=== PATIENT | female | born 1990 | race Caucasian/White ===

== ENCOUNTER 2018-03-03 21:26 | Emergency (ER) | payer OTHER, SELFPAY ==
[2018-03-03 23:32] LABS: Urine Blood NEGATIVE (NEG); Urine Glucose NEGATIVE (NEG); Urine Protein NEGATIVE (NEG); Urine Specific Gravity 1.025 (1.005-1.030)
--- NOTE | 2018-03-03 23:32 | ER ---
Nurse's Notes [facility] Name: Kandy Garces Age: 27 yrs Sex: Female : 1990 Arrival Date: 03/03/2018 Time: 21:48 Bed 19 Private MD: Diagnosis: Otitis media, unspecified, right ear Presentation: 03/03 21:48 Presenting complaint: Patient states: Flu like symptoms for 2 days. Patient is 10 week aj . Denies cramping or bleeding. Transition of care: patient was not received from another setting of care. Onset of symptoms was March 01, 2018. Care prior to arrival: None. 21:48 Method Of Arrival: Ambulatory aj 21:48 Acuity: RUMA 4 aj Triage Assessment: 21:49 General: Appears in no apparent distress. comfortable, Behavior is calm, cooperative, aj appropriate for age. Pain: Denies pain. EENT: Reports nasal congestion nasal discharge. Neuro: Level of Consciousness is awake, alert, obeys commands, Oriented to person, place, time, situation. Respiratory: Reports cough that is Airway is patent Respiratory effort is even, unlabored, Respiratory pattern is regular, symmetrical. Derm: Skin is intact, is healthy with good turgor, Skin is pink, warm \T\ dry. normal. 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 - Social history:: Smoking status: Patient/guardian denies using tobacco. Screenin/13 00:00 Abuse screen: Denies threats or abuse. Denies injuries from another. Nutritional bs1 screening: No deficits noted. Tuberculosis screening: No symptoms or risk factors identified. Fall Risk None identified. Assessment: 03/03 23:30 General: Appears in no apparent distress. uncomfortable, ill, Behavior is calm, bs1 cooperative, Reports chills for 2-3 days, fever for 2-3 days, feeling ill for 2-3 days. 23:30 Pain: Complains of pain in right ear and left ear Pain does not radiate. Neuro: Level bs1 of Consciousness is awake, alert, obeys commands, Oriented to person, place, time, situation, Appropriate for age Quad Stayer are equal bilaterally Moves all extremities. Cardiovascular: Denies chest pain, lightheadedness, palpitations, shortness of breath, Heart tones S1 S2 present Capillary refill < 3 seconds Patient's skin is warm and dry. Respiratory: Reports cough that is productive, Airway is patent Trachea midline Respiratory effort is even, unlabored, Respiratory pattern is regular, symmetrical, Breath sounds are clear bilaterally. GI: No deficits noted. No signs and/or symptoms were reported involving the gastrointestinal system. : No deficits noted. No signs and/or symptoms were reported regarding the genitourinary system. EENT: No deficits noted. No signs and/or symptoms were reported regarding the EENT system. Derm: Skin is intact, Skin is pink, warm \T\ dry. Musculoskeletal: Circulation, motion, and sensation intact. Capillary refill < 3 seconds, Range of motion: intact in all extremities. Vital Signs: 21:49 BP 125 / 67; Pulse 93; Resp 20; Temp 98.1; Pulse Ox 98% on R/A; Weight 87.09 kg; Height aj 5 ft. 2 in. (157.48 cm); Pain 0/10; 03/04 00:00 BP 139 / 61; Pulse 81; Resp 16; Temp 98.1(O); Pulse Ox 100% on R/A; bs1 03/03 21:49 Body Mass Index 35.12 (87.09 kg, 157.48 cm) ED Course: 03/03 21:48 Patient arrived in ED. aj 21:49 Triage completed. aj 21:49 Arm band placed on right wrist. Patient placed in waiting room, Patient notified of wait time. 23:02 Misa Schafer FNP-C [facility]. snw 23:02 Josue Kramer MD is Attending Physician. snw 23:24 Floridalma Sam RN is Primary Nurse. bs1 23:30 Patient has correct armband on for positive identification. Bed in low position. Call bs1 light in reach. Side rails up X 1. Pulse ox on. NIBP on. 03/04 00:09 No provider procedures requiring assistance completed. Patient did not have IV access bs1 during this emergency room visit. Administered Medications: 03/03 23:44 Drug: Rocephin (cefTRIAXone) 1 grams Route: IM; Site: right deltoid; bs1 03/04 00:10 Follow up: Response: No adverse reaction bs1 Outcome: 03/03 23:31 Discharge ordered by MD. gerard 03/04 00:09 Discharged to home ambulatory. bs1 Condition: stable Discharge instructions given to patient, Instructed on discharge instructions, follow up and referral plans. medication usage, Demonstrated understanding of instructions, follow-up care, medications, Prescriptions given X 1. 00:11 Patient left the ED. bs1 Signatures: Yamel Whitman, RN RN Misa Tompkins, DOV-C INSURANCE VERIFICATION CLERK-Floridalma Singh RN RN bs1 Corrections: (The following items were deleted from the chart) 00:08 03/03 23:30 General: Appears in no apparent distress. uncomfortable, ill, Behavior is bs1 bs1
--- NOTE | 2018-03-03 23:32 | EDPHYS ---
Physician Documentation [facility] Name: Kandy Garces Age: 27 yrs Sex: Female : 1990 Arrival Date: 03/03/2018 Time: 21:48 Bed 19 Private MD: ED Physician Josue Kramer HPI: 03/04 02:09 This 27 yrs old Female presents to ER via Ambulatory with complaints of Flu snw Symptoms. 02:09 Onset: The symptoms/episode began/occurred gradually, 3 day(s) ago, and became snw persistent. Associated signs and symptoms: Pertinent positives: congestion, sore throat. Modifying factors: The patient symptoms are alleviated by nothing. It is unknown whether or not the patient has had similar symptoms in the past. The patient has not recently seen a physician. + 10 weeks . 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 - Social history:: Smoking status: Patient/guardian denies using tobacco. ROS: 03/04 02:11 Eyes: Negative for injury, pain, redness, and discharge, Neck: Negative for injury, snw pain, and swelling, Cardiovascular: Negative for chest pain, palpitations, and edema, Respiratory: Negative for shortness of breath, cough, wheezing, and pleuritic chest pain, Abdomen/GI: Negative for abdominal pain, nausea, vomiting, diarrhea, and constipation, Back: Negative for injury and pain, : Negative for injury, bleeding, discharge, and swelling, MS/Extremity: Negative for injury and deformity, Skin: Negative for injury, rash, and discoloration, Neuro: Negative for headache, weakness, numbness, tingling, and seizure. Constitutional: Positive for fatigue, malaise, poor PO intake. ENT: Positive for nasal discharge, sore throat. Exam: 02:07 Constitutional: This is a well developed, well nourished patient who is awake, alert, snw and in no acute distress. Head/Face: Normocephalic, atraumatic. + head tremor Eyes: Pupils equal round and reactive to light, extra-ocular motions intact. Lids and lashes normal. Conjunctiva and sclera are non-icteric and not injected. Cornea within normal limits. Periorbital areas with no swelling, redness, or edema. ENT: Nares patent. No nasal discharge, no septal abnormalities noted. Tympanic membrane to right erythematous, left tm and external auditory canals are clear. Oropharynx with no redness, swelling, or masses, exudates, or evidence of obstruction, uvula midline. Mucous membranes moist. Neck: Trachea midline, no thyromegaly or masses palpated, and no cervical lymphadenopathy. Supple, full range of motion without nuchal rigidity, or vertebral point tenderness. No Meningismus. Chest/axilla: Normal chest wall appearance and motion. Nontender with no deformity. No lesions are appreciated. Cardiovascular: Regular rate and rhythm with a normal S1 and S2. No gallops, murmurs, or rubs. Normal PMI, no JVD. No pulse deficits. Respiratory: Lungs have equal breath sounds bilaterally, clear to auscultation and percussion. No rales, rhonchi or wheezes noted. No increased work of breathing, no retractions or nasal flaring. Abdomen/GI: Soft, non-tender, with normal bowel sounds. No distension or tympany. No guarding or rebound. No evidence of tenderness throughout. Back: No spinal tenderness. No costovertebral tenderness. Full range of motion. Skin: Warm, dry with normal turgor. Normal color with no rashes, no lesions, and no evidence of cellulitis. MS/ Extremity: Pulses equal, no cyanosis. Neurovascular intact. Full, normal range of motion. Neuro: Awake and alert, GCS 15, oriented to person, place, time, and situation. Cranial nerves II-XII grossly intact. Motor strength 5/5 in all extremities. Sensory grossly intact. Cerebellar exam normal. Normal gait. Vital Signs: 03/03 21:49 BP 125 / 67; Pulse 93; Resp 20; Temp 98.1; Pulse Ox 98% on R/A; Weight 87.09 kg; Height aj 5 ft. 2 in. (157.48 cm); Pain 0/10; 03/04 00:00 BP 139 / 61; Pulse 81; Resp 16; Temp 98.1(O); Pulse Ox 100% on R/A; bs1 03/03 21:49 Body Mass Index 35.12 (87.09 kg, 157.48 cm) [facility]: 03/03 23:26 Patient medically screened. [facility] 03/04 02:11 Data reviewed: vital signs, nurses notes. Data interpreted: Pulse oximetry: on room air snw is 100 %. Interpretation: normal. Counseling: I had a detailed discussion with the patient and/or guardian regarding: the historical points, exam findings, and any diagnostic results supporting the discharge/admit diagnosis, the presence of at least one elevated blood pressure reading (>120/80) during this emergency department visit, lab results, the need for outpatient follow up, to return to the emergency department if symptoms worsen or persist or if there are any questions or concerns that arise at home. Special discussion: Based on the history and exam findings, there is no indication for further emergent testing or inpatient evaluation. I discussed with the patient/guardian the need to see the OB Gyne specialist for further evaluation of the symptoms. I discussed with the patient/guardian the need to see the primary care provider for further evaluation of the symptoms. 03/03 21:51 Order name: Flu; Complete Time: 23:31 aj 03/03 21:51 Order name: Strep; Complete Time: 23:31 aj 03/03 23:04 Order name: Urine Culture sn 03/03 23:04 Order name: Urine Microscopic Only; Complete Time: 23:52 snw 03/03 23:13 Order name: Throat Culture EDMD 03/03 23:22 Order name: Urine --Ancillary (enter results); Complete Time: 23:33 em1 03/03 23:04 Order name: Urine Dipstick-Ancillary (obtain specimen); Complete Time: 23:17 snw 03/03 23:22 Order name: Urine Dipstick--Ancillary (enter results); Complete Time: 23:33 em1 Administered Medications: 03/03 23:44 Drug: Rocephin (cefTRIAXone) 1 grams Route: IM; Site: right deltoid; 1 03/04 00:10 Follow up: Response: No adverse reaction bs1 Disposition: 07:05 Co-signature as Attending Physician, Josue Kramer MD I agree with the assessment and leonora plan of care. Disposition: 03/03/18 23:31 Discharged to Home. Impression: Otitis media, unspecified, right ear. - Condition is Stable. - Discharge Instructions: Upper Respiratory Infection, Adult, Otitis Media, Adult, [id number], First Trimester of . - Prescriptions for Augmentin 875- 125 mg Oral Tablet - take 1 tablet by ORAL route every 12 hours for 10 days; 20 tablet. - Medication Reconciliation Form, Thank You Letter, Antibiotic Education form. - Follow up: Private Physician; When: 2 - 3 days; Reason: Recheck today's complaints, Continuance of care, Re-evaluation by your physician. Follow up: Emergency Department; When: As needed; Reason: Worsening of condition. Signatures: Dispatcher [employer] EDYamel Norman RN RN aj Anderson, Corey, MD MD cha Therrien, Shelly, DELIVERY NURSE-C DELIVERY NURSE-Csnw Floridalma Sam RN RN bs1 Corrections: (The following items were deleted from the chart) 02:11 02:07 Constitutional: This is a well developed, well nourished patient who is awake, snw alert, and in no acute distress. Head/Face: Normocephalic, atraumatic. Eyes: Pupils equal round and reactive to light, extra-ocular motions intact. Lids and lashes normal. Conjunctiva and sclera are non-icteric and not injected. Cornea within normal limits. Periorbital areas with no swelling, redness, or edema. ENT: Nares patent. No nasal discharge, no septal abnormalities noted. Tympanic membrane to right erythematous, left tm and external auditory canals are clear. Oropharynx with no redness, swelling, or masses, exudates, or evidence of obstruction, uvula midline. Mucous membranes moist. Neck: Trachea midline, no thyromegaly or masses palpated, and no cervical lymphadenopathy. Supple, full range of motion without nuchal rigidity, or vertebral point tenderness. No Meningismus. Chest/axilla: Normal chest wall appearance and motion. Nontender with no deformity. No lesions are appreciated. Cardiovascular: Regular rate and rhythm with a normal S1 and S2. No gallops, murmurs, or rubs. Normal PMI, no JVD. No pulse deficits. Respiratory: Lungs have equal breath sounds bilaterally, clear to auscultation and percussion. No rales, rhonchi or wheezes noted. No increased work of breathing, no retractions or nasal flaring. Abdomen/GI: Soft, non-tender, with normal bowel sounds. No distension or tympany. No guarding or rebound. No evidence of tenderness throughout. Back: No spinal tenderness. No costovertebral tenderness. Full range of motion. Skin: Warm, dry with normal turgor. Normal color with no rashes, no lesions, and no evidence of cellulitis. MS/ Extremity: Pulses equal, no cyanosis. Neurovascular intact. Full, normal range of motion. Neuro: Awake and alert, GCS 15, oriented to person, place, time, and situation. Cranial nerves II-XII grossly intact. Motor strength 5/5 in all extremities. Sensory grossly intact. Cerebellar exam normal. Normal gait. snw
[2018-03-03] MEDS ORDERED: CEFTRIAXONE 1000 MG/VIAL ONE (23:37)
[2018-03-03 23:47] LABS: Urine Bacteria 20-50 /HPF (<20); Urine RBC NONE SEEN /HPF (NONE SEEN)
[2018-03-03 23:48] LABS: Urine Amorphous Sediment 3+ /HPF (NONE SEEN); Urine Culture Reflex Order NOT NEEDED
== END 2018-03-04 00:11 | disposition home or self-care (01) ==
LOC: ER 21:26
DX: H66.91 Otitis media, unspecified, right ear (principal); J45.909 Unspecified asthma, uncomplicated; Z88.6 Allergy status to analgesic agent
CPT/HCPCS: 81003; 81015; 81025; 87070; 87081; 87086; 87088; 87804; 96372; 99283

== ENCOUNTER 2020-02-12 20:52 | Emergency (ER) | payer OTHER ==
--- OUTSIDE RECORDS SUMMARY | 2020-02-12 20:54 | XMS REPORT ---
:1990 [facility] Address [address] [place] [address] Dr. Zhang [address] [place] [id number] Care Team Providers Name Role Phone Unavailable Unavailable Unavailable Problems This patient has no known problems. Allergies, Adverse Reactions, Alerts This patient has no known allergies or adverse reactions. Medications This patient has no known medications.
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
--- OUTSIDE RECORDS SUMMARY | 2020-02-12 20:55 | XMS REPORT | Summary of Care ---
:1990 Author Organization [facility] Address [address] [place] [address] Care Team Providers Name Role Phone Dereck Chun Primary Care Provider Eamon Magdaleno Insurance Hmo Reason for Visit Reason Comments NURSE VISIT Depo Encounter Details Date Type Department Care Team Description 07/18/2019 Nurse Visit [facility]- Dereck Chun, ANIMAL NUTRITIONIST [address] [place], [place] [address] Depo-Provera [place] Visit, [facility] Nurse contraceptive status [address] [facility] (Primary Dx) [place] [address] Allergies Active Allergy Reactions Severity Noted Date Comments Codeine Swelling, Rash 04/17/2016 documented as of this encounter (statuses as of 07/18/2019) Medications Medication Sig Dispensed Refills Start Date [...] mouth 3 (three) Chronic migraine times daily. Hospital, Clinic, or Other Ordered Dose Route Frequency Start Date End Date Status Facility Administered Medication medroxyPROGESTERone 150 mg IM [id number] 11/02/2018 Active (DEPO-PROVERA) injection 150 mgIndications: General counseling and advice for contraceptive management documented as of this encounter (statuses as of 07/18/2019) Active Problems Problem Noted Date Class 1 obesity due to excess calories with body mass index (BMI) of 34.0 to 34.9 in adult, unspecified whether serious comorbidity present Contraception management 07/01/2018 Overview: Desires nexplanon Lymphedema 03/03/2018 Tremors of nervous system 03/03/2018 History of asthma 03/03/2018 documented as of this encounter (statuses as of 07/18/2019) Resolved Problems Problem Noted Date Resolved Date [...] as of this encounter (statuses as of 07/18/2019) Immunizations Name Administration Dates Next Due Influenza Virus Vaccine Quad IM 3+ YRS 09/01/2018 Tdap 07/01/2018 documented as of this encounter Social History Tobacco Use Types Packs/Day Years Used Date Former Smoker Cigarettes 0.1 1 Quit: 09/22/2017 Smokeless Tobacco: Never Used Alcohol Use Drinks/Week oz/Week Comments No Sex Assigned at Date Recorded Not on file Job Start Date Occupation Industry Not on file Not on file Not on file Travel History Travel Start Travel End No recent travel history available. documented as of this encounter Last Filed Vital Signs Vital Sign Reading Time Taken Comments Blood Pressure 122/74 07/18/2019 10:28 AM CDT Pulse 64 07/18/2019 10:28 AM CDT Temperature 36.6 C (97.9 F) 07/18/2019 10:28 AM CDT Respiratory Rate 16 07/18/2019 10:28 AM CDT Oxygen Saturation - - Inhaled Oxygen Concentration - - Weight 87.3 kg (192 lb 8 oz) 07/18/2019 10:28 AM CDT Height 157.5 cm (5' 2") 07/18/2019 10:28 AM CDT Body Mass Index 35.21 07/18/2019 10:28 AM CDT documented in this encounter Patient Instructions Patient InstructionsNena Jolly LVN - 07/18/2019 10:00 AM CDT Medroxyprogesterone injection [Contraceptive] Brand Names: Depo-Provera, Depo-subQ Provera 104 What is this medicine? MEDROXYPROGESTERONE (me DROX ee proe OZIEL te erick) contraceptive injections prevent . They provide effective control for 3 months. Depo-subQ Provera 104 is also used for treating pain related to endometriosis. How should I use this medicine? Depo-Provera Contraceptive injection is given into a muscle. Depo-subQ Provera 104 injection is given under the skin. These injections are given by a health child care associate teacher. You must not be before getting an injection. The injection is usually given during the first 5 days after the start of a menstrual period or 6 weeks after delivery of a baby. Talk to your solid waste collection worker regarding the use of this medicine in children. Special care may be needed. These injections have been used in female children who have started having menstrual periods. What side effects may I notice from receiving this medicine? Side effects that you should report to your doctor or health child care associate teacher as soon as possible: allergic reactions like skin rash, itching or hives, swelling of the face, lips, or tongue breast tenderness or discharge breathing problems changes in vision depression feeling faint or lightheaded, falls fever pain in the abdomen, chest, groin, or leg problems with balance, talking, walking unusually weak or tired yellowing of the eyes or skin Side effects that usually do not require medical attention (report to your doctor or health child care associate teacher if they continue or are bothersome): acne fluid retention and swelling headache irregular periods, spotting, or absent periods temporary pain, itching, or skin reaction at site where injected weight gain What may interact with this medicine? Do not take this medicine with any of the following medications: bosentan This medicine may also interact with the following medications: aminoglutethimide antibiotics or medicines for infections, especially rifampin, rifabutin, rifapentine, and griseofulvin aprepitant barbiturate medicines such as phenobarbital or primidone bexarotene carbamazepine medicines for seizures like ethotoin, felbamate, oxcarbazepine, phenytoin, topiramate modafinil Rhodhiss's wort What if I miss a dose? Try not to miss a dose. You must get an injection once every 3 months to maintain control. If you cannot keep an appointment, call and reschedule it. If you wait longer than 13 weeks between Depo-Provera contraceptive injections or longer than 14 weeks between Depo-subQ Provera 104 injections, you could get . Use another method for control if you miss your appointment. You may also need a test before receiving another injection. Where should I keep my medicine? This does not apply. The injection will be given to you by a health child care associate teacher. What should I tell my health care provider before I take this medicine? They need to know if you have any of these conditions: frequently drink alcohol asthma blood vessel disease or a history of a blood clot in the lungs or legs bone disease such as osteoporosis breast cancer diabetes eating disorder (anorexia nervosa or bulimia) high blood pressure HIV infection or AIDS kidney disease liver disease mental depression migraine seizures (convulsions) stroke tobacco smoker vaginal bleeding an unusual or allergic reaction to medroxyprogesterone, other hormones, medicines, foods, dyes, or preservatives or trying to get breast-feeding What should I watch for while using this medicine? This drug does not protect you against HIV infection (AIDS) or other sexually transmitted diseases. Use of this product may cause you to lose calcium from your bones. Loss of calcium may cause weak bones (osteoporosis). Only use this product for more than 2 years if other forms of control are not right for you. The longer you use this product for control the more likely you will be at risk for weak bones. Ask your health child care associate teacher how you can keep strong bones. You may have a change in bleeding pattern or irregular periods. Many females stop having periods while taking this drug. If you have received your injections on time, your chance of being is very low. If you think you may be , see your health child care associate teacher as soon as possible. Tell your health child care associate teacher if you want to get within the next year. The effect of this medicine may last a long time after you get your last injection. NOTE:This sheet is a summary. It may not cover all possible information. If you have questions aboutthis medicine, talk to your doctor, pharmacist, or health care provider. Copyright 2018 Elsevier documented in this encounter Progress Notes Nena Jolly LVN - 07/18/2019 10:00 AM CDT29 year old female has been identified by and name. Verbal consent has been obtained by patientto have an injection of Depo Provera, as ordered by the provider. Date of last Depo Provera injection: 04/25/2019 Last WWE:11/02/2018 Encounter Diagnosis: v25.49 The site was cleaned with an alcohol swab and given intramuscularly (IM) in the left deltoid. A band aid dressing was then applied to the injection site. The patient tolerated the procedure well . Patient stated her LMP lasted almost a month, informed patient it can take time for patient's body to adjust to hormones, patient stated she will try another injection and see if she wanted to switch to OCPs. Encouraged patient to take daily calcium supplement of daily 500-1,200mg, ER warnings given, RTC in 90 days. documented in this encounter Plan of Treatment Date Type Specialty Care Team Description 10/10/2019 [facility] Visit [facility] Tierney Bull, ANIMAL NUTRITIONIST [address] [facility] [place] [address] [phone] Health Maintenance Due Date Last Done Comments VARICELLA VACCINES (1 of 2 - 13+ 2004 2-dose series) INFLUENZA VACCINE (#1) 2019 09/01/2018 PAP SMEAR 11/02/2021 11/02/2018 DTaP,Tdap,and Td Vaccines (2 - Td) 07/01/2028 07/01/2018 PNEUMOCOCCAL 0-64 YEARS COMBINED Aged Out No longer eligible based on SERIES patient's age to complete this topic documented as of this encounter Results Not on filedocumented in this encounter Visit Diagnoses Diagnosis Depo-Provera contraceptive status - Primary Surveillance of other previously prescribed contraceptive method documented in this encounter Administered Medications Medication Order MAR Action Action Date Dose Rate Site medroxyPROGESTERone Given 07/18/2019 10:44 150 mg Left Deltoid-IM (DEPO-PROVERA) injection 150 AM CDT mg 150 mg, Intramuscular, [id number], First dose on Wed11/02/18 at 1400, Until Discontinued, Routine Given 04/25/2019 3:02 PM CDT 150 mg Right Deltoid-IM Given 01/31/2019 3:56 PM CDT 150 mg Left Deltoid-IM documented in this encounter Insurance Payer Benefit Plan / Subscriber ID Effective Dates Phone Address Type Group [facility] xxxxxxxxx 2018-Present Medicaid COMM PLAN - MANAGED MEDICAID documented as of this encounter Advance Directives Name Relationship Healthcare Agent Communication Relationship Nkechi Paiz Mother Primary healthcare agent Yvan Mcnulty Significant Other Second alternate [phone] healthcare agent (Mobile)
--- OUTSIDE RECORDS SUMMARY | 2020-02-12 20:55 | XMS REPORT | Summary of Care ---
:1990 Author Organization [facility] [employer] [facility] Address [address] [place] [address] Care Team Providers Name Role Phone Dereck Chun DRAFTER (CAD) ELECTRONIC Primary Care Provider Eamon Magdaleno Insurance Hmo Reason for Visit Reason Comments Well Woman Exam Encounter Details Date Type Department Care Team Description 01/10/2020 Office Visit [facility]- Dereck Chun Well woman exam (no gynecological exam) (Primary Dx); DOV [place] Encounter for surveillance of injectable contraceptive; [address] [place] Depo-Provera contraceptive status; [place] Abnormal glandular Papanicolaou smear of cervix; [address] [place], [place] Papanicolaou smear of cervix with low grade squamous intraepithelial lesion (LGSIL); [phone] [address] Tremors of nervous system; [phone] Class 2 obesity with body mass index (BMI) of 36.0 to 36.9 in adult, unspecified obesity type, unspecified whether serious comorbidity present; [phone] BMI 36.0-36.9,adult (Fax) Allergies Active Allergy Reactions [...] Facility Administered Medication medroxyPROGESTERone 150 mg IM [id number] 11/02/2018 Active (DEPO-PROVERA) injection 150 mgIndications: General counseling and advice for contraceptive management medroxyPROGESTERone 150 mg IM [id number] 01/11/2020 12/11/2020 Active (DEPO-PROVERA) injection 150 mgIndications: [...] Comments Blood Pressure 130/89 01/10/2020 1:09 PM RESTAURANT DISTRICT MANAGER Pulse 81 01/10/2020 1:09 PM RESTAURANT DISTRICT MANAGER Temperature 36.3 C (97.3 F) 01/10/2020 1:09 PM RESTAURANT DISTRICT MANAGER Respiratory Rate 16 01/10/2020 1:09 PM RESTAURANT DISTRICT MANAGER Oxygen Saturation - - Inhaled Oxygen Concentration - - Weight 90.5 kg (199 lb 8 oz) 01/10/2020 1:09 PM RESTAURANT DISTRICT MANAGER Height 157.5 cm (5' 2") 01/10/2020 1:09 PM RESTAURANT DISTRICT MANAGER Body Mass Index 36.49 01/10/2020 1:09 PM RESTAURANT DISTRICT MANAGER documented in this encounter Progress Notes Dereck [...] (3.7 kg) M VAGINAL EPI SRIKANTH Comments: [place] screen #1: 09/16/2018 NORMAL. (IDS) Maternal Age: [...] Left 04/23/2016 Surgeon: Jacinto Escobar MD; Location: [facility] JET LAVAGE Left 04/24/2016 Surgeon: Jacinto Escobar MD; Location: [facility] KNEE ARTHROSCOPY Left Social History Socioeconomic History [...] file Gets together: Not on file Attends orthodoxy service: Not on file Active member of [...] or past physical, sexual or emotional abuse. Sikhism preference is catholic. Patient lives with boyfriend and child. Social [...] Desired BCM: depo 3) LMP:01/10/2020 4) Last [place]:11/06/2019 5) Last Pap:11/02/2018 Results:negative 6) Tdap in last 10 years?07/01/2018 HPV?unknown 7) C/O none 8) Patient denies history of physical, emotional, or sexual abuse. Patient states she currently feels safe at home. documented in this encounter Plan of Treatment Date Type Specialty Care Team Description 03/11/2020 Office Visit [facility] Dereck Chun FNP [address] [place] [address] [phone] Health Maintenance Due Date Last Done Comments [...] ID Effective Dates Phone Address Type Group [facility] xxxxxxxxx 2018-Present Medicaid COMM PLAN - MANAGED MEDICAID documented as of this encounter Advance Directives Name Relationship Healthcare Agent Communication Relationship Nkechi Paiz Mother Primary healthcare agent Yvan Mcnulty Significant Other Second alternate [phone] healthcare agent (Mobile)
--- OUTSIDE RECORDS SUMMARY | 2020-02-12 20:55 | XMS REPORT | Summary of Care ---
:1990 Author Organization [facility] Address [address] [place] [address] Care Team Providers Name Role Phone Dereck Chun Primary Care Provider Eamon Magdaleno Insurance Hmo Reason for Visit Reason Comments NURSE VISIT Encounter Details Date Type Department Care Team Description 01/04/2020 Nurse Visit [facility]- Dereck Chun, GATE PERSON [address] [place] [address] [phone] Encounter for [place] Visit, [facility] Nurse Depo-Provera [address] [facility] contraception (Primary [place], [place]) [address] Allergies Active Allergy Reactions Severity Noted Date Comments Codeine Swelling, Rash 04/17/2016 documented as of this encounter (statuses as of 01/04/2020) Medications Medication Sig Dispensed Refills Start Date [...] Facility Administered Medication medroxyPROGESTERone 150 mg IM [id number] 11/02/2018 Active (DEPO-PROVERA) injection 150 mgIndications: General counseling and advice for contraceptive management documented as of this encounter (statuses as of 01/04/2020) Active Problems Problem Noted Date Class 1 obesity due to excess calories with body mass index (BMI) of 34.0 to 34.9 in adult, unspecified whether serious comorbidity present Contraception management 07/01/2018 Overview: Desires nexplanon Lymphedema 03/03/2018 Tremors of nervous system 03/03/2018 History of asthma 03/03/2018 documented as of this encounter (statuses as of 01/04/2020) Resolved Problems Problem Noted Date Resolved Date [...] as of this encounter (statuses as of 01/04/2020) Immunizations Name Administration Dates Next Due Influenza [...] Sign Reading Time Taken Comments Blood Pressure 121/76 01/04/2020 10:00 AM PHYSICAL ANTHROPOLOGIST Pulse 75 01/04/2020 10:00 AM PHYSICAL ANTHROPOLOGIST Temperature 35.9 C (96.7 F) 01/04/2020 10:00 AM PHYSICAL ANTHROPOLOGIST Respiratory Rate 16 01/04/2020 10:00 AM PHYSICAL ANTHROPOLOGIST Oxygen Saturation - - Inhaled Oxygen Concentration - - Weight 90.6 kg (199 lb 11.2 oz) 01/04/2020 10:00 AM PHYSICAL ANTHROPOLOGIST Height 157.5 cm (5' 2") 01/04/2020 10:00 AM PHYSICAL ANTHROPOLOGIST Body Mass Index 36.53 01/04/2020 10:00 AM PHYSICAL ANTHROPOLOGIST documented in this encounter Progress Notes Shaquille Mane RN - 01/04/2020 9:30 AM CST29 year old female has been identified by and name. Verbal consent has been obtained by patientto have an injection of Depo Provera, as ordered by the provider. Date of last Depo Provera injection: 10/10/2019 Last WWE: 11/02/2018 Encounter Diagnosis: v25.49 The site was cleaned with an alcohol swab and given intramuscularly (IM) in the left deltoid. A band aid dressing was then applied to the injection site. The patient tolerated the procedure well . Advised patient on Calcium intake 500-1200 mg daily. ED warnings given. Patient to return to clinic [facility] for WWE and in 12 weeks for next Depo. SHAQUILLE MANE RN 01/04/2020 10:23 AM documented in this encounter Plan of Treatment Date Type Specialty Care Team Description 01/10/2020 Office Visit [facility] Satellite[facility]reck Alexander, GATE PERSON [address] [place] [address] 03/08/2020 Office Visit OB Tierney Vanessa, GATE PERSON [address] [place] [address] Health Maintenance Due Date Last Done Comments [...] filedocumented in this encounter Visit Diagnoses Diagnosis Encounter for Depo-Provera contraception - Primary Surveillance of other previously prescribed contraceptive method documented in this encounter Administered Medications Medication Order MAR Action Action Date Dose Rate Site medroxyPROGESTERone Given 01/04/2020 4:11 150 mg Left Deltoid-IM (DEPO-PROVERA) injection 150 PM PHYSICAL ANTHROPOLOGIST mg 150 mg, Intramuscular, [id number], First dose on Wed11/02/18 at 1400, Until Discontinued, Routine Given 10/10/2019 1:51 PM PHYSICAL ANTHROPOLOGIST 150 mg Right Deltoid-IM Given 07/18/2019 10:44 AM CDT 150 mg Left Deltoid-IM documented in this encounter Insurance Payer Benefit Plan / Subscriber ID Effective Dates Phone Address Type Group [facility] xxxxxxxxx 2018-Present Medicaid COMM PLAN - MANAGED MEDICAID documented as of this encounter Advance Directives Name Relationship Healthcare Agent Communication Relationship Nkechi Paiz Mother Primary healthcare agent Yvan Mcnulty Significant Other Second alternate [phone] healthcare agent (Mobile)
--- NOTE | 2020-02-12 22:34 | EDPHYS ---
Physician Documentation [facility] Name: Kandy Garces Age: 29 yrs Sex: Female : 1990 Arrival Date: 02/12/2020 Time: 20:54 Bed 25 Private MD: ED Physician Piter Jackson HPI: 02/11 21:19 This 29 yrs old Female presents to ER via Ambulatory with complaints of pm1 Fever, Cough, Chest Pain. 21:19 The patient or guardian reports cough, flu symptoms. Onset: The symptoms/episode pm1 began/occurred 2 week(s) ago. Severity of symptoms: in the emergency department the symptoms are actually worse. Modifying factors: The symptoms are alleviated by nothing, the symptoms are aggravated by nothing. Associated signs and symptoms: Pertinent positives: chest pain, with cough, fever, Pertinent negatives: diarrhea, ear ache, nausea, sore throat, vomiting. It is unknown whether or not the patient has recently seen a physician. 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 - Social history:: Smoking status: Patient denies any tobacco usage or history of. ROS: 21:19 Eyes: Negative for injury, pain, redness, and discharge, ENT: Negative for injury, pm1 pain, and discharge, Neck: Negative for injury, pain, and swelling. 21:19 Abdomen/GI: Negative for abdominal pain, nausea, vomiting, diarrhea, and constipation, Back: Negative for injury and pain, MS/Extremity: Negative for injury and deformity, Skin: Negative for injury, rash, and discoloration, Neuro: Negative for headache, weakness, numbness, tingling, and seizure. 21:19 Constitutional: Positive for fever. 21:19 Cardiovascular: Positive for chest pain, Negative for edema, palpitations. 21:19 Respiratory: Positive for cough, Negative for shortness of breath, sputum production, wheezing. Exam: 21:19 Constitutional: This is a well developed, well nourished patient who is awake, alert, pm1 and in no acute distress. Head/Face: Normocephalic, atraumatic. ENT: Nares patent. No nasal discharge, no septal abnormalities noted. Tympanic membranes are normal and external auditory canals are clear. Oropharynx with no redness, swelling, or masses, exudates, or evidence of obstruction, uvula midline. Mucous membranes moist. Neck: Trachea midline, no thyromegaly or masses palpated, and no cervical lymphadenopathy. Supple, full range of motion without nuchal rigidity, or vertebral point tenderness. No Meningismus. Chest/axilla: Normal chest wall appearance and motion. Nontender with no deformity. No lesions are appreciated. Cardiovascular: Regular rate and rhythm with a normal S1 and S2. No gallops, murmurs, or rubs. Normal PMI, no JVD. No pulse deficits. Respiratory: Lungs have equal breath sounds bilaterally, clear to auscultation and percussion. No rales, rhonchi or wheezes noted. No increased work of breathing, no retractions or nasal flaring. Abdomen/GI: Soft, non-tender, with normal bowel sounds. No distension or tympany. No guarding or rebound. No evidence of tenderness throughout. Back: No spinal tenderness. No costovertebral tenderness. Full range of motion. Skin: Warm, dry with normal turgor. Normal color with no rashes, no lesions, and no evidence of cellulitis. MS/ Extremity: Pulses equal, no cyanosis. Neurovascular intact. Full, normal range of motion. 21:19 Neuro: Exam negative for acute changes, Orientation: is normal, Motor: is normal, moves all fours, Sensation: is normal, no obvious gross deficits. Vital Signs: 21:11 BP 130 / 75; Pulse 86; Resp 17 S; Temp 98.5(O); Pulse Ox 97% on R/A; Weight 89.36 kg ca1 (R); Height 5 ft. 2 in. (157.48 cm) (R); Pain 7/10; 22:15 BP 128 / 79; Pulse 82; Resp 18; Pulse Ox 99% on R/A; wh 21:11 Body Mass Index 36.03 (89.36 kg, 157.48 cm) ca1 MDM: 21:10 Patient medically screened. pm1 22:32 Data reviewed: vital signs. Data interpreted: Pulse oximetry: on room air is 97 %. pm1 Interpretation: normal. Counseling: I had a detailed discussion with the patient and/or guardian regarding: the historical points, exam findings, and any diagnostic results supporting the discharge/admit diagnosis, lab results, radiology results, the need for outpatient follow up, to return to the emergency department if symptoms worsen or persist or if there are any questions or concerns that arise at home. 02/11 21:19 Order name: Flu; Complete Time: 22:32 pm1 02/11 21:19 Order name: Strep; Complete Time: 22:32 pm1 02/11 21:19 Order name: Chest Pa And Lat (2 Views) XRAY pm1 02/11 22:19 Order name: Throat Culture EDMS Administered Medications: No medications were administered Disposition: 02/12 00:01 Co-signature as Attending Physician, Piter Jackson MD. [email or web address] Disposition: 02/12/20 22:34 Discharged to Home. Impression: Influenza due to certain identified influenza viruses - Influenza B. - Condition is Stable. - Discharge Instructions: Influenza, Adult. - Prescriptions for Tessalon Perles 100 mg Oral Capsule - take 1 capsule by ORAL route every 8 hours As needed; 15 capsule. - Medication Reconciliation Form, Thank You Letter, Antibiotic Education, Prescription Opioid Use form. - Follow up: Emergency Department; When: As needed; Reason: Worsening of condition. Follow up: Private Physician; When: 2 - 3 days; Reason: Recheck today's complaints, Continuance of care, Re-evaluation by your physician. - Problem is new. - Symptoms have improved. Signatures: Dispatcher [employer] EDMS Piter Jackson MD MD pkl Gonsalo Cosby NP MANAGER FLEET pm1 Alana Worrell Rochelle Nolasco RN RN ca1 Corrections: (The following items were deleted from the chart) 02/11 23:09 22:34 02/12/2020 22:34 Discharged to Home. Impression: Influenza due to certain identified influenza viruses - Influenza B. Condition is Stable. Forms are Medication Reconciliation Form, Thank You Letter, Antibiotic Education, Prescription Opioid Use. Follow up: Emergency Department; When: As needed; Reason: Worsening of condition. Follow up: Private Physician; When: 2 - 3 days; Reason: Recheck today's complaints, Continuance of care, Re-evaluation by your physician. Problem is new. Symptoms have improved. pm1
--- NOTE | 2020-02-12 22:34 | ER ---
Nurse's Notes [facility] Name: Kandy Garces Age: 29 yrs Sex: Female : 1990 Arrival Date: 02/12/2020 Time: 20:54 Bed 25 Private MD: Diagnosis: Influenza due to certain identified influenza viruses-Influenza B Presentation: 02/11 21:11 Chief complaint: Patient states: cough and congestion x 2 weeks. Fever x 1 week off and ca1 on. Reports SOB and chest pains with cough. Coronavirus screen: Patient reports a subjective fever or greater than 100.4F, or cough, or shortness of breath, or difficulty breathing. Surgical mask placed on patient. Patient moved to private room, placed in contact and droplet isolation with eye protection until further assessment. Patient denies travel on a cruise ship or to a country the [facility] currently lists as an affected area. Patient denies contact with known and/or suspected case of COVID-19. Infection Prevention Nurse has been notified of patient in isolation for probable COVID-19. Ebola Screen: Patient negative for fever greater than or equal to 101.5 degrees Fahrenheit, and additional compatible Ebola Virus Disease symptoms Patient denies exposure to infectious person. Patient denies travel to an Ebola-affected area in the 21 days before illness onset. No symptoms or risks identified at this time. Initial Sepsis Screen: Does the patient meet any 2 criteria? No. Patient's initial sepsis screen is negative. Does the patient have a suspected source of infection? No. Patient's initial sepsis screen is negative. Risk Assessment: Do you want to hurt yourself or someone else? Patient reports no desire to harm self or others. Onset of symptoms was February 12, 2020. 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 - Social history:: Smoking status: Patient denies any tobacco usage or history of. Screenin:00 Abuse screen: Denies threats or abuse. Denies injuries from another. Nutritional wh screening: No deficits noted. Tuberculosis screening: No symptoms or risk factors identified. Fall Risk None identified. Assessment: 21:30 General: Appears in no apparent distress. Behavior is calm, cooperative, appropriate wh for age. Pain: Denies pain. Neuro: Level of Consciousness is awake, alert, obeys commands, Oriented to person, place, time, situation, Appropriate for age. Cardiovascular: Heart tones S1 S2. Respiratory: Airway is patent Respiratory effort is even, unlabored, Respiratory pattern is regular, symmetrical, Breath sounds are clear bilaterally. Parent/caregiver reports the patient having cough that is. GI: Abdomen is flat, non-distended. : No signs and/or symptoms were reported regarding the genitourinary system. EENT: Throat is pink. Derm: Skin is intact, is healthy with good turgor, Skin is pink, warm \T\ dry. normal. Musculoskeletal: Circulation, motion, and sensation intact. 22:50 Reassessment: Patient appears in no apparent distress at this time. No changes from previously documented assessment. Patient and/or family updated on plan of care and expected duration. Pain level reassessed. Patient is alert, oriented x 3, equal unlabored respirations, skin warm/dry/pink. Vital Signs: 21:11 BP 130 / 75; Pulse 86; Resp 17 S; Temp 98.5(O); Pulse Ox 97% on R/A; Weight 89.36 kg ca1 (R); Height 5 ft. 2 in. (157.48 cm) (R); Pain 7/10; 22:15 BP 128 / 79; Pulse 82; Resp 18; Pulse Ox 99% on R/A; wh 21:11 Body Mass Index 36.03 (89.36 kg, 157.48 cm) ca1 ED Course: 20:54 Patient arrived in ED. cf2 21:00 Gonsalo Cosby NP is PHCP. pm1 21:00 Piter Jackson MD is Attending Physician. pm1 21:13 Triage completed. ca1 21:14 Arm band placed on right wrist. ca1 21:46 Chest Pa And Lat (2 Views) XRAY In Process Unspecified. EDMS 21:55 Bed in low position. Call light in reach. Side rails up X 1. beside commode placed in 3 patients room prior to swabs. Door closed. Verbal reassurance given. 21:55 Patient maintains SpO2 saturation greater than 95% on room air. 3 21:55 Urine collected: clean catch specimen, clear, kathi colored, Flu and/or RSV swab sent jp3 to lab. Strep swab sent to lab. Strep Sent, Flu Sent. 22:47 Alana Worrell is Primary Nurse. 23:06 No provider procedures requiring assistance completed. Patient did not have IV access during this emergency room visit. Administered Medications: No medications were administered Outcome: 22:34 Discharge ordered by MD. pm1 23:07 Discharged to home ambulatory. 23:07 Condition: stable 23:07 Discharge instructions given to patient, Instructed on discharge instructions, follow up and referral plans. medication usage, POC Demonstrated understanding of instructions, follow-up care, medications, POC Prescriptions given X 1. 23:09 Patient left the ED. Signatures: Dispatcher [employer] EDMS Gonsalo Cosby NP ORNAMENT STITCHER pm1 Alana Worrell Dario Orellana 3 Rochelle Nolasco RN RN [facility] Porfirio Rodriguez cf2 Corrections: (The following items were deleted from the chart) 22:08 22:04 Patient maintains SpO2 saturation greater than 95% on room air. 3 3 22:08 22:04 Urine collected: clean catch specimen, clear, kathi colored, Flu and/or RSV swab 3 sent to lab. Strep swab sent to lab. 3 22:08 22:06 Group A Streptococcus Rapid Sc+BA.LAB.BRZ drawn and sent. 3 3 22:08 22:07 Influenza Screen (A \T\ B)+BA.LAB.BRZ drawn and sent. 3 3
[2020-02-12 23:22] VITALS: BP 128/79; O2SAT 99
[2020-02-12 23:24] VITALS: TEMP 98.5
--- NOTE | 2020-02-13 07:07 | RAD REPORT ---
EXAM DESCRIPTION: RAD - Chest Pa And Lat (2 Views) - 02/12/2020 9:38 pm CLINICAL HISTORY: Cough;Fever, congestion COMPARISON: Two view chest October 2016 TECHNIQUE: Frontal and lateral views of the chest were obtained. FINDINGS: The lungs are clear. Heart size is normal and central vasculature is within normal limit s. No pleural effusion or pneumothorax seen. No acute bony finding noted. No aortic abnormality. No significant change comparison. IMPRESSION: No acute cardiopulmonary process.
== END 2020-02-12 23:09 | disposition home or self-care (01) ==
LOC: ER 20:52
DX: J10.1 Influenza due to other identified influenza virus with other respiratory manifestations (principal); Z88.5 Allergy status to narcotic agent
CPT/HCPCS: 71046; 87070; 87081; 87804; 99284

== ENCOUNTER 2022-04-17 22:02 | Emergency (ER) | payer OTHER ==
--- OUTSIDE RECORDS SUMMARY | 2022-04-17 22:07 | XMS REPORT | Continuity of Care Document ---
:1990 Author Organization [facility] t Address [address] [place] [address] Care Team Providers Name Role Phone Shadia CHUN Primary Care Physician Unavailable SOLORZANO, R Attending Clinician Unavailable Solorzano EMNP, R Attending Clinician AKINDENNYS, C Attending Clinician Unavailable CHUN, R Attending Clinician Unavailable Sudireddy_R Attending Clinician Unavailable Visit, Nurse Attending Clinician Unavailable Akinsipe WHCNP, C Attending Clinician Doctor Unassigned, Name Attending Clinician Unavailable JOHN JOLLY Attending Clinician Unavailable Karol REGIONAL RECRUITER, R Attending Clinician John Jolly DO Attending Clinician SOLORZANO, R Admitting Clinician Unavailable Sudireddy_R Admitting Clinician Unavailable Payers Payer Name Policy Type Policy Number Effective Date Expiration Date S lauren GENI/[facility] DUAL [id number] 2021 COMP HMO D SNP 00:00:00 [facility] STAR [id number] 2022 PLUS 00:00:00 MEDICAID [facility] [id number] 2021 00:00:00 ELISE PAPPAS - [id number] [facility]LY [facility] [place] Condition Condition Condition Status Onset Resolution Last Treating Co mments Source Name Details Category Date Date Treatment Clinician Date Encounter Encounter Disease Active Uni vers for for - ity of surveillan [place] ce of 00 Medical injectable injectable Br anch contracept contracept brandon brandon Depo-Prove Depo-Prove Disease Active U nivers ra ra 2-19 [place] of contrace[place] status brandon status 00 Me dical Branch BMI BMI Disease Active Univers 37.0-37.9, 37.0-37.9, 2-19 it y of adult adult 00:00: [place] [facility] Papanicola Papanicola Disease Active U nivers ou smear ou smear 2-19 ity of of cervix [place] with low with low 00 Medica l grade 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) Abnormal Abnormal Disease Active Unive rs glandular glandular 2-19 ity of Papanicola Papanicola [place] ou smear ou smear 00 Medica l of cervix of cervix Bran ch Class 2 Class 2 Disease Active 2017-11 Univers obesity obesity 0-24 [place] of with body [place] body [place] mass index mass index 00 Me dical (BMI) of (BMI) of Branch 37.0 to 37.0 to 37.9 in 37.9 in adult, adult, unspecifie unspecifie d obesity d obesity type, type, unspecifie unspecifie d whether d whether serious serious comorbidit comorbidit y present y present Contracept Contracept Disease Active Overview : Univers ion ion 8-10 Desires ity of management management 00:00: nexplanon [place] [facility] Well woman Well woman Disease Active Overview : Univers exam exam 8-10 Formattin ity of 00:00: g of this [place] note Medical might be Branch different from the original. Desires nexplanon Lymphedema Lymphedema Disease Active U nivers 4-12 ity of 00:: [place] [facility] Tremors of Tremors of Disease Active U nivers nervous nervous 4-12 ity of system system 00:00: [place] [address] Medical Branch History of History of Disease Active U nivers asthma asthma 4-12 ity of 00:00: [place] [facility] Allergies, Adverse Reactions, Alerts Allergy Allergy Status Severity Reaction(s) Onset Inactive Treating Comm ents Source Name Type Date Date Clinician Codeine Propensi Active Rash Univers ty to 04-17 ity of adverse 00:00: [place] reaction 00 [facility] Branch CODEINE DRUG Active Swelling Univers INGREDI 04-17 ity of 00:00: [place] 00 Medical Branch NO KNOWN Drug Active Univers ALLERGIE Class ity of S [facility] Social History Social Habit Start Date Stop Date Quantity Comments Source Exposure to 2022-03-29 2022-04-08 Not sure [facility] SARS-CoV-2 (event) 00:00:00 23:43:00 [facility] Alcohol intake 2022-04-08 2022-04-08 Current University of 00:00:00 00:00:00 non-drinker of [facility] [place] alcohol [place] (finding) Tobacco use and 2018-03-03 2018-03-03 Never used Universit y of exposure 00:00:00 00:00:00 [facility] Cigarettes smoked 2018-03-03 2018-03-03 Univers ity of current (pack per 00:00:00 00:00:00 [facility] ) - Reported Branch Cigarette 2018-03-03 2018-03-03 University of pack-years 00:00:00 00:00:00 [facility] History of tobacco 2017-09-22 Cigarette Smoker University of use 00:00:00 [facility] Sex [birth year] Universit y of 00:00:00 00:00:00 [facility] Smoking Status Start Date Stop Date Source Former smoker 2018-03-03 00:00:00 2018-03-03 00:00:00 Universi ty of [facility] Medications Ordered Filled Start Stop Current Ordering Indication Dosage Frequency Signature Comments Components Source Medication Medication Date Date Medication? Clinician (SIG) Name Name medroxyPROG 2020- No [id number] 150mg Univers ESTERone 05-28 ity of (DEPO-PROVE 19:01: 19:01 [place] RA) 00 :00 Medical injection Branch 150 mg medroxyPROG 2020- No [id number] 150mg 150 mg, Univers ESTERone 05-28 Intramuscu ity of (DEPO-PROVE 19:01: 19:01 lar, ONCE, [place] RA) 00 :00 1 dose, Medical injection 7/7/21 Bran ch 150 mg at 1415, Routine medroxyPROG 2020-0 2020- No [id number] 150mg Univers ESTERone 06-12 ity of (DEPO-PROVE 05:00: 04:59 [place] RA) 00 :00 Medical injection Branch 150 mg medroxyPROG 2020-0 2020- No [id number] 150mg Univers ESTERone 06-12 ity of (DEPO-PROVE 05:00: 04:59 [place] RA) 00 :00 Medical injection Branch 150 mg medroxyPROG 2020-0 2020- No [id number] 150mg Univers ESTERone 06-12 ity of (DEPO-PROVE 05:00: 04:59 [place] RA) 00 :00 Medical injection Branch 150 mg medroxyPROG 2020-0 2020- No [id number] 150mg Univers ESTERone 06-12 ity of (DEPO-PROVE 05:00: 04:59 [place] RA) 00 :00 Medical injection Branch 150 mg medroxyPROG 2020-0 2020- No [id number] 150mg 150 mg, Univers ESTERone 06-12 Intramuscu ity of (DEPO-PROVE 05:00: 04:59 lar, [place] RA) 00 :00 [id number], Medical injection 4 doses, Branch 150 mg First dose on Wed06/12/20 at 0000, Last dose on Wed02/19/21 at 0000, Routine medroxyPROG 2020-0 2020- No [id number] 150mg Univers ESTERone 06-12 ity of (DEPO-PROVE 05:00: 04:59 [place] RA) 00 :00 Medical injection Branch 150 mg medroxyPROG 2020-0 2020- No [id number] 150mg 150 mg, Univers ESTERone 06-12 Intramuscu ity of (DEPO-PROVE 05:00: 04:59 lar, [place] RA) 00 :00 [id number], Medical injection 4 doses, Branch 150 mg First dose on Wed06/12/20 at 0000, Last dose on Wed02/19/21 at 0000, Routine medroxyPROG 2020-0 2020- No [id number] 150mg Univers ESTERone 06-12 ity of (DEPO-PROVE 05:00: 04:59 [place] RA) 00 :00 Medical injection Branch 150 mg medroxyPROG 2020-0 2020- No [id number] 150mg 150 mg, Univers ESTERone 06-12 Intramuscu ity of (DEPO-PROVE 05:00: 04:59 lar, [place] RA) 00 :00 [id number], Medical injection 4 doses, Branch 150 mg First dose on Wed06/12/20 at 0000, Last dose on Wed02/19/21 at 0000, Routine medroxyPROG 2020-0 2020- No [id number] 150mg Univers ESTERone 06-12 ity of (DEPO-PROVE 05:00: 04:59 [place] RA) 00 :00 Medical injection Branch 150 mg medroxyPROG 2020-0 2020- No [id number] 150mg Univers ESTERone 06-12 ity of (DEPO-PROVE 05:00: 18:56 [place] RA) 00 :00 Medical injection Branch 150 mg medroxyPROG 2020-0 2020- No [id number] 150mg 150 mg, Univers ESTERone 06-1214 Intramuscu ity of (DEPO-PROVE 05:00: 18:56 lar, [place] RA) 00 :00 [id number], Medical injection 4 doses, Branch 150 mg First dose on Wed06/12/20 at 0000, Last dose on Wed02/19/21 at 0000, Routine medroxyPROG 2020-0 2019- No [id number] 150mg Univers ESTERone 06-11 ity of (DEPO-PROVE 21:00: 21:00 [place] RA) 00 :02 Medical injection Branch 150 mg medroxyPROG 2020-0 2019- No [id number] 150mg Univers ESTERone 06-11 ity of (DEPO-PROVE 21:00: 21:00 [place] RA) 00 :02 Medical injection Branch 150 mg medroxyPROG 2020-0 2019- No [id number] 150mg Univers ESTERone 06-11 ity of (DEPO-PROVE 21:00: 21:00 [place] RA) 00 :02 Medical injection Branch 150 mg Fluticasone 2020-0 2020- No 1{puff} Inhale 1 Univers -Salmeterol 06-11 Puff every i ty of (ADVAIR 20:50: 00:00 12 [place] DISKUS) 08 :00 (twelve) Medical 100-50 hours. Branch mcg/dose inhalation disk Fluticasone 2020-0 2020- No 1{puff} Inhale 1 Univers -Salmeterol 7-21 07-21 Puff every i ty of (ADVAIR 20:50: 00:00 12 [place] DISKUS) 08 :00 (twelve) Medical 100-50 hours. Branch mcg/dose inhalation disk Fluticasone 2020-0 2020- No 1{puff} Inhale 1 Univers -Salmeterol 7-21 07-21 Puff every i ty of (ADVAIR 20:50: 00:00 12 [place] DISKUS) 08 :00 (twelve) Medical 100-50 hours. Branch mcg/dose inhalation disk ALBUTEROL 2020-0 2020- No 1{puff} Inhale 1-2 Univers SULFATE HFA 7-21 07-21 Puffs as ity of INHALE 20:50: 00:00 [place] 01 :00 Other Medical (asthma). Branch ALBUTEROL 2020-0 2020- No 1{puff} Inhale 1-2 Univers SULFATE HFA 7-21 07-21 Puffs as ity of INHALE 20:50: 00:00 [place] 01 :[place] Other Medical (asthma). Branch ALBUTEROL 2020-0 2020- No 1{puff} Inhale 1-2 Univers SULFATE HFA 7-21 07-21 Puffs as ity of INHALE 20:50: 00:00 [place] 01 :[place] Other Medical (asthma). Branch medroxyPROG 2020-2020- No [id number] 150mg Univers ESTERone 2-20 -21 ity of (DEPO-PROVE 06:00: 05:59 [place] RA) 00 :00 Medical injection Branch 150 mg medroxyPROG 2020-0 2020- No [id number] 150mg Univers ESTERone 2-20 -21 ity of (DEPO-PROVE 06:00: 05:59 [place] RA) 00 :00 Medical injection Branch 150 mg medroxyPROG 2020-0 2020- No [id number] 150mg Univers ESTERone 2-20 -21 ity of (DEPO-PROVE 06:00: 05:59 [place] RA) 00 :00 Medical injection Branch 150 mg medroxyPROG 2020-0 2021- No [id number] 150mg Univers ESTERone 2-20 -21 ity of (DEPO-PROVE 06:00: 05:59 [place] RA) 00 :00 Medical injection Branch 150 mg medroxyPROG 2020-0 1- No [id number] 150mg Univers ESTERone 2-20 - ity of (DEPO-PROVE 06:00: 05:59 [place] RA) 00 :00 Medical injection Branch 150 mg medroxyPROG 2020-0 1- No [id number] 150mg Univers ESTERone 2-20 - ity of (DEPO-PROVE 06:00: 05:59 [place] RA) 00 :00 Medical injection Branch 150 mg medroxyPROG 2020-0 2020- No [id number] 150mg Univers ESTERone 2-20 - ity of (DEPO-PROVE 06:00: 05:59 [place] RA) 00 :00 Medical injection Branch 150 mg medroxyPROG 2020-0 2020- No [id number] 150mg Univers ESTERone 2-20 - ity of (DEPO-PROVE 06:00: 20:50 [place] RA) 00 :42 Medical injection Branch 150 mg medroxyPROG 2020-0 2020- No [id number] 150mg Univers ESTERone 2-20 -21 ity of (DEPO-PROVE 06:00: 20:50 [place] RA) 00 :42 Medical injection Branch 150 mg medroxyPROG 2020-0 2020- No [id number] 150mg Univers ESTERone 2-20 -21 ity of (DEPO-PROVE 06:00: 20:50 [place] RA) 00 :42 Medical injection Branch 150 mg topiramate 2020-0 Yes Take by Uni vers (TOPAMAX 2-19 mouth. ity of ORAL) 19:17: [place] [address] Medical Branch BACLOFEN 2020-0 Yes Take by Unive rs ORAL 2-19 mouth. ity of 19:17: [place] [address] Medical Branch topiramate 2020-0 Yes Take by Uni vers (TOPAMAX 2-19 mouth. ity of ORAL) 19:17: [place] [address] Medical Branch BACLOFEN 2020-0 Yes Take by Unive rs ORAL 2-19 mouth. ity of 19:17: [place] [address] Medical Branch topiramate 2020-0 Yes Take by Uni vers (TOPAMAX 2-19 mouth. ity of ORAL) 19:17: [address] BACLOFEN 2020-0 Yes Take by Unive rs ORAL 2-19 mouth. ity of 19:17: [address] topiramate 2020-0 Yes Take by Uni vers (TOPAMAX 2-19 mouth. ity of ORAL) 19:17: [address] BACLOFEN 2020-0 Yes Take by Unive rs ORAL 2-19 mouth. ity of 19:17: [address] topiramate 2020-0 Yes Take by Uni vers (TOPAMAX 2-19 mouth. ity of ORAL) 19:17: [address] BACLOFEN 2020-0 Yes Take by Unive rs ORAL 2-19 mouth. ity of 19:17: [address] topiramate 2020-0 Yes Take by Uni vers (TOPAMAX 2-19 mouth. ity of ORAL) 19:17: [address] BACLOFEN 2020-0 Yes Take by Unive rs ORAL 2-19 mouth. ity of 19:17: [address] topiramate 2020-0 Yes Take by Uni vers (TOPAMAX 2-19 mouth. ity of ORAL) 19:17: [address] BACLOFEN 2020-0 Yes Take by Unive rs ORAL 2-19 mouth. ity of 19:17: [address] topiramate 2020-0 Yes Take by Uni vers (TOPAMAX 2-19 mouth. ity of ORAL) 19:17: [address] BACLOFEN 2020-0 Yes Take by Unive rs ORAL 2-19 mouth. ity of 19:17: [address] topiramate 2020-0 Yes Take by Uni vers (TOPAMAX 2-19 mouth. ity of ORAL) 19:17: [address] BACLOFEN 2020-0 Yes Take by Unive rs ORAL 2-19 mouth. ity of 19:17: [address] topiramate 2020-0 Yes Take by Uni vers (TOPAMAX 2-19 mouth. ity of ORAL) 19:17: [address] BACLOFEN 2020-0 Yes Take by Unive rs ORAL 2-19 mouth. ity of 19:17: [address] topiramate 2020-0 Yes Take by Uni vers (TOPAMAX 2-19 mouth. ity of ORAL) 19:17: [address] BACLOFEN 2020-0 Yes Take by Unive rs ORAL 2-19 mouth. ity of 19:17: [address] topiramate 2020-0 Yes Take by Uni vers (TOPAMAX 2-19 mouth. ity of ORAL) 19:17: [address] BACLOFEN 2020-0 Yes Take by Unive rs ORAL 2-19 mouth. ity of 19:17: [address] topiramate 2020-0 Yes Take by Uni vers (TOPAMAX 2-19 mouth. ity of ORAL) 19:17: [address] BACLOFEN 2020-0 Yes Take by Unive rs ORAL 2-19 mouth. ity of 19:17: [address] topiramate 2020-0 Yes Take by Uni vers (TOPAMAX 2-19 mouth. ity of ORAL) 19:17: [address] BACLOFEN 2020-0 Yes Take by Unive rs ORAL 2-19 mouth. ity of 19:17: [address] topiramate 2020-0 Yes Take by Uni vers (TOPAMAX 2-19 mouth. ity of ORAL) 19:17: [address] BACLOFEN 2020-0 Yes Take by Unive rs ORAL 2-19 mouth. ity of 19:17: [address] topiramate 2020-0 Yes Take by Uni vers (TOPAMAX 2-19 mouth. ity of ORAL) 19:17: [address] BACLOFEN 2020-0 Yes Take by Unive rs ORAL 2-19 mouth. ity of 19:17: [address] topiramate 2020-0 Yes Take by Uni vers (TOPAMAX 2-19 mouth. ity of ORAL) 19:17: [address] BACLOFEN 2020-0 Yes Take by Unive rs ORAL 2-19 mouth. ity of 19:17: [address] topiramate 2020-0 Yes Take by Uni vers (TOPAMAX 2-19 mouth. ity of ORAL) 13:17: [address] BACLOFEN 2020-0 Yes Take by Unive rs ORAL 2-19 mouth. ity of 13:17: [address] propranolol 2019-0 Yes [id number] 20mg Take 1 Univers 20 mg 1-03 tablet by ity of tablet 00:00: mouth 3 [place] (three) Medical times Branch daily. propranolol 2019-0 Yes [id number] 20mg Take 1 Univers 20 mg 1-03 tablet by ity of tablet 00:00: mouth 3 [place] 00 (three) Medical times Branch daily. propranolol 2019-0 Yes [id number] 20mg Take 1 Univers 20 mg 1-03 tablet by ity of tablet 00:00: mouth 3 [place] 00 (three) Medical times Branch daily. propranolol 2019-0 Yes [id number] 20mg Take 1 Univers 20 mg 1-03 tablet by ity of tablet 00:00: mouth 3 [place] 00 (three) Medical times Branch daily. propranolol 2019- Yes [id number] 20mg Take 1 Univers 20 mg 1-03 tablet by ity of tablet 00:00: mouth 3 [place] 00 (three) Medical times Branch daily. propranolol 2019-0 Yes [id number] 20mg Take 1 Univers 20 mg 1-03 tablet by ity of tablet 00:00: mouth 3 [place] 00 (three) Medical times Branch daily. propranolol 2019- Yes [id number] 20mg Take 1 Univers 20 mg 1-03 tablet by ity of tablet 00:00: mouth 3 [place] 00 (three) Medical times Branch daily. propranolol 2019- Yes [id number] 20mg Take 1 Univers 20 mg 1-03 tablet by ity of tablet 00:00: mouth 3 [place] 00 (three) Medical times Branch daily. propranolol 2019-0 Yes [id number] 20mg Take 1 Univers 20 mg 1-03 tablet by ity of tablet 00:00: mouth 3 [place] 00 (three) Medical times Branch daily. propranolol 2020- No [id number] 20mg Take 1 Univers 20 mg 1-03 07-21 tablet by ity of tablet 00:00: 00:00 mouth 3 [place] 00 :00 (three) Medical times Branch daily. propranolol 2020- No [id number] 20mg Take 1 Univers 20 mg 1-03 07-21 tablet by ity of tablet 00:00: 00:00 mouth 3 [place] 00 :00 (three) Medical times Branch daily. propranolol 2018- 2020- No [id number] 20mg Take 1 Univers 20 mg 1-03 07-21 tablet by ity of tablet 00:00: 00:00 mouth 3 [place] 00 :00 (three) Medical times Branch daily. medroxyPROG 2017-11 Yes [id number] 150mg Univers ESTERone 2-12 ity of (DEPO-PROVE 20:00: [place] RA) 00 Medical injection Branch 150 mg medroxyPROG 2017-11 Yes [id number] 150mg Univers ESTERone 2-12 ity of (DEPO-PROVE 20:00: [place] RA) 00 Medical injection Branch 150 mg medroxyPROG 2017-11 Yes [id number] 150mg Univers ESTERone 2-12 ity of (DEPO-PROVE 20:00: [place] RA) 00 Medical injection Branch 150 mg medroxyPROG 2017-11 Yes [id number] 150mg Univers ESTERone 2-12 ity of (DEPO-PROVE 20:00: [place] RA) 00 Medical injection Branch 150 mg medroxyPROG 2017-11 Yes [id number] 150mg Univers ESTERone 2-12 ity of (DEPO-PROVE 20:00: [place] RA) 00 Medical injection Branch 150 mg medroxyPROG 2017-11 Yes [id number] 150mg 150 mg, Univers ESTERone 2-12 Intramuscu ity o f (DEPO-PROVE 20:00: [facility], [place] RA) 00 [id number], Medical injection First dose Bran ch 150 mg on Wed11/02/18 at 1400, Until Discontinu ed, Routine medroxyPROG 2017-11 Yes [id number] 150mg Univers ESTERone 2-12 ity of (DEPO-PROVE 20:00: [place] RA) 00 Medical injection Branch 150 mg medroxyPROG 2017-11 Yes [id number] 150mg 150 mg, Univers ESTERone 2-12 Intramuscu ity o f (DEPO-PROVE 20:00: [facility], [place] RA) 00 [id number], Medical injection First dose Bran ch 150 mg on Wed11/02/18 at 1400, Until Discontinu ed, Routine medroxyPROG 2017-11 Yes [id number] 150mg Univers ESTERone 2-12 ity of (DEPO-PROVE 20:00: [place] RA) 00 Medical injection Branch 150 mg medroxyPROG 2017-11 Yes [id number] 150mg Univers ESTERone 2-12 ity of (DEPO-PROVE 20:00: [place] RA) 00 Medical injection Branch 150 mg medroxyPROG 2017-11 Yes [id number] 150mg 150 mg, Univers ESTERone 2-12 Intramuscu ity o f (DEPO-PROVE 20:00: [facility], [place] RA) 00 [id number], Medical injection First dose Bran ch 150 mg on Wed11/02/18 at 1400, Until Discontinu ed, Routine medroxyPROG 2017-11 Yes [id number] 150mg Univers ESTERone 2-12 ity of (DEPO-PROVE 20:00: [place] RA) 00 Medical injection Branch 150 mg medroxyPROG 2017-11 Yes [id number] 150mg 150 mg, Univers ESTERone 2-12 Intramuscu ity o f (DEPO-PROVE 20:00: lar, [place] RA) 00 [id number], Medical injection First dose Bran ch 150 mg on Wed11/02/18 at 1400, Until Discontinu ed, Routine medroxyPROG 2017-11 2020- No [id number] 150mg Univers ESTERone 2-12 07-21 ity of (DEPO-PROVE 20:00: 21:00 [place] RA) 00 :01 Medical injection Branch 150 mg medroxyPROG 2017-11 2020- No [id number] 150mg Univers ESTERone 2-12 07-21 ity of (DEPO-PROVE 20:00: 21:00 [place] RA) 00 :01 Medical injection Branch 150 mg medroxyPROG 2017-11 2020- No [id number] 150mg Univers ESTERone 2-12 07-21 ity of (DEPO-PROVE 20:00: 21:00 [place] RA) 00 :01 Medical injection Branch 150 mg ALBUTEROL 2017-11 Yes 1{puff} Inhale 1-2 Univers SULFATE HFA 2-12 Puffs as ity of INHALE 19:11: needed for [place] [address] Other Medical (asthma). Branch Fluticasone 2017-11 Yes 1{puff} Inhale 1 Univers -Salmeterol 2-12 Puff every it y of (ADVAIR 19:11: 12 [place] DISKUS) 31 (twelve) Medical 100-50 hours. Branch mcg/dose inhalation disk ALBUTEROL 2017-11 Yes 1{puff} Inhale 1-2 Univers SULFATE HFA 2-12 Puffs as ity of INHALE 19:11: needed for [place] [address] Other Medical (asthma). Branch Fluticasone 2017-11 Yes 1{puff} Inhale 1 Univers -Salmeterol 2-12 Puff every it y of (ADVAIR 19:11: 12 [place] DISKUS) 31 (twelve) Medical 100-50 hours. Branch mcg/dose inhalation disk ALBUTEROL 2017-11 Yes 1{puff} Inhale 1-2 Univers SULFATE HFA 2-12 Puffs as ity of INHALE 19:11: needed for [place] [address] Other Medical (asthma). Branch Fluticasone 2017-11 Yes 1{puff} Inhale 1 Univers -Salmeterol 2-12 Puff every it y of (ADVAIR 19:11: 12 [place] DISKUS) 31 (twelve) Medical 100-50 hours. Branch mcg/dose inhalation disk ALBUTEROL 2017-11 Yes 1{puff} Inhale 1-2 Univers SULFATE HFA 2-12 Puffs as ity of INHALE 19:11: needed for [place] [address] Other Medical (asthma). Branch Fluticasone 2017-11 Yes 1{puff} Inhale 1 Univers -Salmeterol 2-12 Puff every it y of (ADVAIR 19:11: 12 [place] DISKUS) 31 (twelve) Medical 100-50 hours. Branch mcg/dose inhalation disk ALBUTEROL 2017-11 Yes 1{puff} Inhale 1-2 Univers SULFATE HFA 2-12 Puffs as ity of INHALE 19:11: needed for [place] [address] Other Medical (asthma). Branch Fluticasone 2017-11 Yes 1{puff} Inhale 1 Univers -Salmeterol 2-12 Puff every it y of (ADVAIR 19:11: 12 [place] DISKUS) 31 (twelve) Medical 100-50 hours. Branch mcg/dose inhalation disk ALBUTEROL 2017-11 Yes 1{puff} Inhale 1-2 Univers SULFATE HFA 2-12 Puffs as ity of INHALE 19:11: needed for [place] [address] Other Medical (asthma). Branch Fluticasone 2017-11 Yes 1{puff} Inhale 1 Univers -Salmeterol 2-12 Puff every it y of (ADVAIR 19:11: 12 [place] DISKUS) 31 (twelve) Medical 100-50 hours. Branch mcg/dose inhalation disk ALBUTEROL 2017-11 Yes 1{puff} Inhale 1-2 Univers SULFATE HFA 2-12 Puffs as ity of INHALE 19:11: needed for [place] [address] Other Medical (asthma). Branch Fluticasone 2017-11 Yes 1{puff} Inhale 1 Univers -Salmeterol 2-12 Puff every it y of (ADVAIR 19:11: 12 [place] DISKUS) 31 (twelve) Medical 100-50 hours. Branch mcg/dose inhalation disk ALBUTEROL 2017-11 Yes 1{puff} Inhale 1-2 Univers SULFATE HFA 2-12 Puffs as ity of INHALE 19:11: needed for [place] 31 Other Medical (asthma). Branch Fluticasone 2017-11 Yes 1{puff} Inhale 1 Univers -Salmeterol 2-12 Puff every it y of (ADVAIR 19:11: 12 [place] DISKUS) 31 (twelve) Medical 100-50 hours. Branch mcg/dose inhalation disk ALBUTEROL 2017-11 Yes 1{puff} Inhale 1-2 Univers SULFATE HFA 2-12 Puffs as ity of INHALE 19:11: needed for [place] 31 Other Medical (asthma). Branch Fluticasone 2017-11 Yes 1{puff} Inhale 1 Univers -Salmeterol 2-12 Puff every it y of (ADVAIR 19:11: 12 [place] DISKUS) 31 (twelve) Medical 100-50 hours. Branch mcg/dose inhalation disk docusate 2017-11 Yes 240mg Take 1 Univer s calcium 240 1-29 capsule by it y of mg capsule 00:00: mouth once [place] 00 daily as Medical needed for Branch Constipati on. docusate 2017-11 Yes 240mg Take 1 Univer s calcium 240 1-29 capsule by it y of mg capsule 00:00: mouth once [place] 00 daily as Medical needed for Branch Constipati on. Iron Fum & 2017-11 Yes 1{capsu Take 1 Un aditi P-FA-Vit B 1-29 le} capsule by ity of & C No.9 00:00: mouth [place] (INTEGRA 00 daily. Medical PLUS) 125 Branch mg iron- 1 mg Cap docusate 2017-11 Yes 240mg Take 1 Univer s calcium 240 1-29 capsule by it y of mg capsule 00:00: mouth once [place] 00 daily as Medical needed for Branch Constipati on. docusate 2017-11 Yes 240mg Take 1 Univer s calcium 240 1-29 capsule by it y of mg capsule 00:00: mouth once [place] 00 daily as Medical needed for Branch Constipati on. Iron Fum & 2017-11 Yes 1{capsu Take 1 Un aditi P-FA-Vit B 1-29 le} capsule by ity of & C No.9 00:00: mouth [place] (INTEGRA 00 daily. Medical PLUS) 125 Branch mg iron- 1 mg Cap docusate 2017-11 Yes 240mg Take 1 Univer s calcium 240 1-29 capsule by it y of mg capsule 00:00: mouth once [place] 00 daily as Medical needed for Branch Constipati on. docusate 2017-11 Yes 240mg Take 1 Univer s calcium 240 1-29 capsule by it y of mg capsule 00:00: mouth once [place] 00 daily as Medical needed for Branch Constipati on. Iron Fum & 2017-11 Yes 1{capsu Take 1 Un aditi P-FA-Vit B 1-29 le} capsule by ity of & C No.9 00:00: mouth [place] (INTEGRA 00 daily. Medical PLUS) 125 Branch mg iron- 1 mg Cap docusate 2017-11 Yes 240mg Take 1 Univer s calcium 240 1-29 capsule by it y of mg capsule 00:00: mouth once [place] 00 daily as Medical needed for Branch Constipati on. docusate 2017-11 Yes 240mg Take 1 Univer s calcium 240 1-29 capsule by it y of mg capsule 00:00: mouth once [place] 00 daily as Medical needed for Branch Constipati on. Iron Fum & 2017-11 Yes 1{capsu Take 1 Un aditi P-FA-Vit B 1-29 le} capsule by ity of & C No.9 00:00: mouth [place] (INTEGRA 00 daily. Medical PLUS) 125 Branch mg iron- 1 mg Cap docusate 2017-11 Yes 240mg Take 1 Univer s calcium 240 1-29 capsule by it y of mg capsule 00:00: mouth once [place] 00 daily as Medical needed for Branch Constipati on. docusate 2017-11 Yes 240mg Take 1 Univer s calcium 240 1-29 capsule by it y of mg capsule 00:00: mouth [place] daily as Medical needed for Branch Constipati on. Iron Fum & 2017-11 Yes 1{capsu Take 1 Un aditi P-FA-Vit B 1-29 le} capsule by ity of & C No.9 00:00: mouth [place] ([place] 00 daily. Medical PLUS) 125 Branch mg iron- 1 mg Cap docusate 2017-11 Yes 240mg Take 1 Univer s calcium 240 1-29 capsule by it y of mg capsule 00:00: mouth [place] 00 daily as Medical needed for Branch Constipati on. docusate 2017-11 Yes 240mg Take 1 Univer s calcium 240 1-29 capsule by it y of mg capsule 00:00: mouth [place] 00 daily as Medical needed for Branch Constipati on. Iron Fum & 2017-11 Yes 1{capsu Take 1 Un aditi P-FA-Vit B 1-29 le} capsule by ity of & C No.9 00:00: mouth [place] ([place] 00 daily. Medical PLUS) 125 Branch mg iron- 1 mg Cap docusate 2017-11 Yes 240mg Take 1 Univer s calcium 240 1-29 capsule by it y of mg capsule 00:00: mouth [place] 00 daily as Medical needed for Branch Constipati on. docusate 2017-11 Yes 240mg Take 1 Univer s calcium 240 1-29 capsule by it y of mg capsule 00:00: mouth [place] 00 daily as Medical needed for Branch Constipati on. Iron Fum & 2017-11 Yes 1{capsu Take 1 Un aditi P-FA-Vit B 1-29 le} capsule by ity of & C No.9 00:00: mouth [place] ([place] 00 daily. Medical PLUS) 125 Branch mg iron- 1 mg Cap docusate 2017-11 Yes 240mg Take 1 Univer s calcium 240 1-29 capsule by it y of mg capsule 00:00: mouth [place] 00 daily as Medical needed for Branch Constipati on. docusate 2017-11 Yes 240mg Take 1 Univer s calcium 240 1-29 capsule by it y of mg capsule 00:00: mouth once [place] 00 daily as Medical needed for Branch Constipati on. Iron Fum & 2017-11 Yes 1{capsu Take 1 Un aditi P-FA-Vit B 1-29 le} capsule by ity of & C No.9 00:00: mouth [place] ([place] 00 daily. Medical PLUS) 125 Branch mg iron- 1 mg Cap docusate 2017-11 Yes 240mg Take 1 Univer s calcium 240 1-29 capsule by it y of mg capsule 00:00: mouth once [place] 00 daily as Medical needed for Branch Constipati on. docusate 2017-11 Yes 240mg Take 1 Univer s calcium 240 12-20 capsule by it y of mg capsule 00:00: mouth once [place] 00 daily as Medical needed for Branch Constipati on. Iron Fum & 2017-11 Yes 1{capsu Take 1 Un aditi P-FA-Vit B 12-20 le} capsule by ity of & C No.9 00:00: mouth [place] ([place] 00 daily. Medical PLUS) 125 Branch mg iron- 1 mg Cap docusate 2017-11- No 240mg Take 1 Unive rs calcium 240 12-20- capsule by i ty of mg capsule 00:00: 00:00 mouth once [place] 00 :00 daily as Medical needed for Branch Constipati on. docusate 2017-11- No 240mg Take 1 Unive rs calcium 240 12-20- capsule by i ty of mg capsule 00:00: 00:00 mouth once [place] 00 :00 daily as Medical needed for Branch Constipati on. Iron Fum & 2017-11 2020- No 1{capsu Take 1 U nivers P-FA-Vit B 12-20 le} capsule by it y of & C No.9 00:00: 00:00 mouth [place] ([place] 00 :00 daily. Medical PLUS) 125 Branch mg iron- 1 mg Cap docusate 2017-11- No 240mg Take 1 Unive rs calcium 240 12-20- capsule by i ty of mg capsule 00:00: 00:00 mouth once [place] 00 :00 daily as Medical needed for Branch Constipati on. docusate 2017-11 2020- No 240mg Take 1 Unive rs calcium 240 12-20- capsule by i ty of mg capsule 00:00: 00:00 mouth once [place] 00 :00 daily as Medical needed for Branch Constipati on. Iron Fum & 2017-11 2020- No 1{capsu Take 1 U nivers P-FA-Vit B 12-20 le} capsule by it y of & C No.9 00:00: 00:00 mouth [place] ([place] 00 :00 daily. Medical PLUS) 125 Branch mg iron- 1 mg Cap docusate 2017-11- No 240mg Take 1 Unive rs calcium 240 12-20 capsule by i ty of mg capsule 00:00: 00:00 mouth once [place] 00 :00 daily as Medical needed for Branch Constipati on. docusate 2017-11 2020- No 240mg Take 1 Unive rs calcium 240 12-20 capsule by i ty of mg capsule 00:00: 00:00 mouth once [place] 00 :00 daily as Medical needed for Branch Constipati on. Iron Fum & 2018 2020- No 1{capsu Take 1 U nivers P-FA-Vit B 12-20 le} capsule by it y of & C No.9 00:00: 00:00 mouth [place] ([place] 00 :00 daily. Medical PLUS) 125 Branch mg iron- 1 mg Cap ibuprofen 2017-11 Yes 600mg Take 1 Unive rs 600 mg 0-26 tablet by ity of tablet 00:00: mouth [place] 00 every 6 Medical (six) Branch hours as needed for Pain (scale 1-3) or Pain (scale 4-6) (Pain). Take with food or milk. ibuprofen 2017-11 Yes 600mg Take 1 Unive rs 600 mg 0-26 tablet by ity of tablet 00:00: mouth [place] 00 every 6 Medical (six) Branch hours as needed for Pain (scale 1-3) or Pain (scale 4-6) (Pain). Take with food or milk. ibuprofen 2017-11 Yes 600mg Take 1 Unive rs 600 mg 0-26 tablet by ity of tablet 00:00: mouth [place] 00 every 6 Medical (six) Branch hours as needed for Pain (scale 1-3) or Pain (scale 4-6) (Pain). Take with food or milk. ibuprofen 2017-11 Yes 600mg Take 1 Unive rs 600 mg 0-26 tablet by ity of tablet 00:00: mouth [place] 00 every 6 Medical (six) Branch hours as needed for Pain (scale 1-3) or Pain (scale 4-6) (Pain). Take with food or milk. ibuprofen 2017-11 Yes 600mg Take 1 Unive rs 600 mg 0-26 tablet by ity of tablet 00:00: mouth [place] 00 every 6 Medical (six) Branch hours as needed for Pain (scale 1-3) or Pain (scale 4-6) (Pain). Take with food or milk. ibuprofen 2017-11 Yes 600mg Take 1 Unive rs 600 mg 0-26 tablet by ity of tablet 00:00: mouth [place] 00 every 6 Medical (six) Branch hours as needed for Pain (scale 1-3) or Pain (scale 4-6) (Pain). Take with food or milk. ibuprofen 2017-11 Yes 600mg Take 1 Unive rs 600 mg 0-26 tablet by ity of tablet 00:00: mouth [place] 00 every 6 Medical (six) Branch hours as needed for Pain (scale 1-3) or Pain (scale 4-6) (Pain). Take with food or milk. ibuprofen 2017-11 Yes 600mg Take 1 Unive rs 600 mg 0-26 tablet by ity of tablet 00:00: mouth [place] 00 every 6 Medical (six) Branch hours as needed for Pain (scale 1-3) or Pain (scale 4-6) (Pain). Take with food or milk. ibuprofen 2017-11 Yes 600mg Take 1 Unive rs 600 mg 0-26 tablet by ity of tablet 00:00: mouth [place] 00 every 6 Medical (six) Branch hours as needed for Pain (scale 1-3) or Pain (scale 4-6) (Pain). Take with food or milk. ibuprofen 2017-11- No 600mg Take 1 Univ ers 600 mg 0-26 07-21 tablet by ity of tablet 00:00: 00:00 mouth [place] 00 :00 every 6 Medical (six) Branch hours as needed for Pain (scale 1-3) or Pain (scale 4-6) (Pain). Take with food or milk. ibuprofen 2017-11- No 600mg Take 1 Univ ers 600 mg 0-26 07-21 tablet by ity of tablet 00:00: 00:00 mouth [place] 00 :00 every 6 Medical (six) Branch hours as needed for Pain (scale 1-3) or Pain (scale 4-6) (Pain). Take with food or milk. ibuprofen 2017-11- No 600mg Take 1 Univ ers 600 mg 0-26 07-21 tablet by ity of tablet 00:00: 00:00 mouth [place] 00 :00 every 6 Medical (six) Branch hours as needed for Pain (scale 1-3) or Pain (scale 4-6) (Pain). Take with food or milk. Immunizations Ordered Filled Immunization Date Status Comments [facility] e Immunization Name Name SARS-COV-2 COVID-19 2021-04-11 Completed Unive rsity of PFIZER VACCINE 00:00:00 [facility] SARS-COV-2 COVID-19 2021-04-11 Completed Unive rsity of PFIZER VACCINE 00:00:00 [facility] SARS-COV-2 COVID-19 2021-04-11 Completed Unive rsity of PFIZER VACCINE 00:00:00 [facility] SARS-COV-2 COVID-19 2021-03-20 Completed Unive rsity of PFIZER VACCINE 00:00:00 [facility] SARS-COV-2 COVID-19 2021-03-20 Completed Unive rsity of PFIZER VACCINE 00:00:00 [facility] SARS-COV-2 COVID-19 2021-03-20 Completed Unive rsity of PFIZER VACCINE 00:00:00 [facility] Influenza Virus 2019-09-29 Completed Universit y of Vaccine 00:00:00 [facility] Influenza Virus 2019-09-29 Completed Universit y of Vaccine 00:00:00 [facility] Influenza Virus 2019-09-29 Completed Universit y of Vaccine 00:00:00 [facility] Influenza Virus 2019-09-29 Completed Universit y of Vaccine 00:00:00 [facility] Influenza Virus 2019-09-29 Completed Universit y of Vaccine 00:00:00 [facility] Influenza Virus 2019-09-29 Completed Universit y of Vaccine 00:00:00 [facility] Influenza Virus 2019-09-29 Completed Universit y of Vaccine 00:00:00 [facility] Influenza Virus 2019-09-29 Completed Universit y of Vaccine 00:00:00 [facility] Influenza Virus 2019-09-29 Completed Universit y of Vaccine 00:00:00 [facility] Influenza Virus 2019-09-29 Completed Universit y of Vaccine 00:00:00 [facility] Influenza Virus 2019-09-29 Completed Universit y of Vaccine 00:00:00 [facility] Influenza Virus 2019-09-29 Completed Universit y of Vaccine 00:00:00 [facility] Influenza Virus 2019-09-29 Completed Universit y of Vaccine 00:00:00 [facility] Influenza Virus 2019-09-29 Completed Universit y of Vaccine 00:00:00 [facility] Influenza Virus 2019-09-29 Completed Universit y of Vaccine 00:00:00 [facility] Influenza Virus 2019-09-29 Completed Universit y of Vaccine 00:00:00 [facility] Influenza Virus 2019-09-29 Completed Universit y of Vaccine 00:00:00 [facility] Influenza Virus 2019-09-29 Completed Universit y of Vaccine 00:00:00 [facility] Influenza Virus 2019-09-29 Completed Universit y of Vaccine 00:00:00 [facility] Influenza Virus 2018-09-01 Completed Universit y of Vaccine Quad IM 3+ 00:00:00 [facility] Influenza Virus 2018-09-01 Completed Universit y of Vaccine Quad IM 3+ 00:00:00 [facility] Influenza Virus 2018-09-01 Completed Universit y of Vaccine Quad IM 3+ 00:00:00 [facility] Influenza Virus 2018-09-01 Completed Universit y of Vaccine Quad IM 3+ 00:00:00 [facility] Influenza Virus 2018-09-01 Completed Universit y of Vaccine Quad IM 3+ 00:00:00 [facility] Influenza Virus 2018-09-01 Completed Universit y of Vaccine Quad IM 3+ 00:00:00 [facility] Influenza Virus 2018-09-01 Completed Universit y of Vaccine Quad IM 3+ 00:00:00 [facility] Influenza Virus 2018-09-01 Completed Universit y of Vaccine Quad IM 3+ 00:00:00 [facility] Influenza Virus 2018-09-01 Completed Universit y of Vaccine Quad IM 3+ 00:00:00 [facility] Influenza Virus 2018-09-01 Completed Universit y of Vaccine Quad IM 3+ 00:00:00 [facility] Influenza Virus 2018-09-01 Completed Universit y of Vaccine Quad IM 3+ 00:00:00 [facility] Influenza Virus 2018-09-01 Completed Universit y of Vaccine Quad IM 3+ 00:00:00 [facility] Influenza Virus 2018-09-01 Completed Universit y of Vaccine Quad IM 3+ 00:00:00 [facility] Influenza Virus 2018-09-01 Completed Universit y of Vaccine Quad IM 3+ 00:00:00 [facility] Influenza Virus 2018-09-01 Completed Universit y of Vaccine Quad IM 3+ 00:00:00 [facility] Influenza Virus 2018-09-01 Completed Universit y of Vaccine Quad IM 3+ 00:00:00 [facility] Influenza Virus 2018-09-01 Completed Universit y of Vaccine Quad IM 3+ 00:00:00 [facility] Influenza Virus 2018-09-01 Completed Universit y of Vaccine Quad IM 3+ 00:00:00 [facility] Influenza Virus 2018-09-01 Completed Universit y of Vaccine Quad IM 3+ 00:00:00 [facility] Influenza Virus 2018-09-01 Completed Universit y of Vaccine Quad IM 3+ 00:00:00 [facility] Tdap 2018-07-01 Completed University of 00:00:00 [facility] Tdap 2018-07-01 Completed University of 00:00:00 [facility] Tdap 2018-07-01 Completed University of 00:00:00 [facility] Tdap 2018-07-01 Completed University of 00:00:00 [facility] Tdap 2018-07-01 Completed University of 00:00:00 [facility] Tdap 2018-07-01 Completed University of 00:00:00 [facility] TDAP 2018-07-01 Completed University of 00:00:00 [facility] TDAP 2018-07-01 Completed University of 00:00:00 [facility] TDAP 2018-07-01 Completed University of 00:00:00 [facility] TDAP 2018-07-01 Completed University of 00:00:00 [facility] TDAP 2018-07-01 Completed University of 00:00:00 [facility] TDAP 2018-07-01 Completed University of 00:00:00 [facility] TDAP 2018-07-01 Completed University of 00:00:00 [facility] TDAP 2018-07-01 Completed University of 00:00:00 [facility] TDAP 2018-07-01 Completed University of 00:00:00 [facility] TDAP 2018-07-01 Completed University of 00:00:00 [facility] TDAP 2018-07-01 Completed University of 00:00:00 [facility] TDAP 2018-07-01 Completed University of 00:00:00 [facility] Tdap 2018-07-01 Completed University of 00:00:00 [facility] Tdap 2018-07-01 Completed University of 00:00:00 [facility] Vital Signs Vital Name Observation Time Observation Value Comments Source Systolic blood 2022-04-09 04:41:50 116 mm[Hg] Univer sity of pressure [facility] Diastolic blood 2022-04-09 04:41:50 93 mm[Hg] Unive rsity of pressure [place] [facility] Heart rate 2022-04-09 04:41:50 86 /min Universi ty of [place] [facility] Respiratory rate 2022-04-09 04:41:50 16 /min Univ ersity of [place] [facility] Oxygen saturation in 2022-04-09 04:41:50 97 /min University of Arterial blood by [facility] [place] Pulse oximetry Branch Body temperature 2022-04-09 02:16:00 36.83 Elsa Univ ersity of [place] [facility] Body height 2022-04-09 02:16:00 154.9 cm Universi ty of [place] [facility] Body weight 2022-04-09 02:16:00 108.863 kg Universi ty of [place] [facility] BMI 2022-04-09 02:16:00 45.35 kg/m2 Universi ty of [place] [facility] Systolic blood 2021-05-28 18:59:00 121 mm[Hg] Univer sity of pressure [place] [facility] Diastolic blood 2021-05-28 18:59:00 72 mm[Hg] Unive rsity of pressure [place] [facility] Heart rate 2021-05-28 18:59:00 74 /min Universi ty of [place] [facility] Body temperature 2021-05-28 18:59:00 36.11 Elsa Univ ersity of [place] [facility] Respiratory rate 2021-05-28 18:59:00 16 /min Univ ersity of [place] [facility] Body height 2021-05-28 18:59:00 157.5 cm Universi ty of [place] [facility] Body weight 2021-05-28 18:59:00 91.445 kg Universi ty of [place] [facility] BMI 2021-05-28 18:59:00 36.87 kg/m2 Universi ty of [place] [facility] Systolic blood 2021-03-05 18:06:00 126 mm[Hg] Univer sity of pressure [place] [facility] Diastolic blood 2021-03-05 18:06:00 82 mm[Hg] Unive rsity of pressure [place] [facility] Heart rate 2021-03-05 18:06:00 90 /min Universi ty of [place] [facility] Body temperature 2021-03-05 18:06:00 36.83 Elsa Univ ersity of [place] [facility] Respiratory rate 2021-03-05 18:06:00 16 /min Univ ersity of [place] [facility] Body height 2021-03-05 18:06:00 157.5 cm Universi ty of [place] [facility] Body weight 2021-03-05 18:06:00 92.59 kg Universi ty of [place] [facility] BMI 2021-03-05 18:06:00 37.33 kg/m2 Universi ty of [place] [facility] Systolic blood 2020-12-11 19:40:00 136 mm[Hg] Univer sity of pressure [place] [facility] Diastolic blood 2020-12-11 19:40:00 82 mm[Hg] Unive rsity of pressure [place] [facility] Heart rate 2020-12-11 19:40:00 92 /min Universi ty of [place] [facility] Body temperature 2020-12-11 19:40:00 37.06 Elsa Univ ersity of [place] [facility] Respiratory rate 2020-12-11 19:40:00 16 /min Univ ersity of [place] [facility] Body height 2020-12-11 19:40:00 154.9 cm Universi ty of [place] [facility] Body weight 2020-12-11 19:40:00 92.647 kg [facility]i ty of [place] [facility] BMI 2020-12-11 19:40:00 38.59 kg/m2 Universi ty of [place] [facility] Systolic blood 2020-09-13 14:36:00 135 mm[Hg] Univer sity of pressure [place] [facility] Diastolic blood 2020-09-13 14:36:00 78 mm[Hg] Unive rsity of pressure [place] [facility] Heart rate 2020-09-13 14:36:00 67 /min Universi ty of [place] [facility] Body temperature 2020-09-13 14:36:00 36.56 Elsa Univ ersity of [place] [facility] Respiratory rate 2020-09-13 14:36:00 16 /min Univ ersity of [place] [facility] Body height 2020-09-13 14:36:00 154.9 cm Universi ty of [place] [facility] Systolic blood 2020-06-21 15:41:00 118 mm[Hg] Univer sity of pressure [place] [facility] Diastolic blood 2020-06-21 15:41:00 77 mm[Hg] Unive rsity of pressure [place] [facility] Heart rate 2020-06-21 15:41:00 72 /min Universi ty of [place] [facility] Body temperature 2020-06-21 15:41:00 37.11 Elsa Univ ers[facility] of [place] [facility] Respiratory rate 2020-06-21 15:41:00 16 /min Univ ersity of [place] [facility] Body height 2020-06-21 15:41:00 157.5 cm Universi ty [facility] [place] [facility] Body weight 2020-06-21 15:41:00 93.016 kg [facility]i ty of [place] [facility] BMI 2020-06-21 15:41:00 37.51 kg/m2 [facility] [place] [facility] Systolic blood 2020-06-11 20:29:00 130 mm[Hg] Univer sity of pressure [place] [facility] Diastolic blood 2020-06-11 20:29:00 81 mm[Hg] Unive rsity of pressure [place] [facility] Heart rate 2020-06-11 20:29:00 87 /min Universi ty of [place] [facility] Body temperature 2020-06-11 20:29:00 37 Elsa Univ ersity of [place] [facility] Respiratory rate 2020-06-11 20:29:00 16 /min Univ ersity of [place] [facility] Body height 2020-06-11 20:29:00 157.5 cm Universi ty of [place] [facility] Body weight 2020-06-11 20:29:00 92.307 kg Universi ty of [place] [facility] BMI 2020-06-11 20:29:00 37.22 kg/m2 Universi ty of [place] [facility] Systolic blood 2020-01-10 19:09:00 130 mm[Hg] Univer sity of pressure [place] [facility] Diastolic blood 2020-01-10 19:09:00 89 mm[Hg] Unive rsity of pressure [place] [facility] Heart rate 2020-01-10 19:09:00 81 /min Universi ty of [place] [facility] Body temperature 2020-01-10 19:09:00 36.28 Elsa Univ ersity of [place] [facility] Respiratory rate 2020-01-10 19:09:00 16 /min Univ ersity of [place] [facility] Body height 2020-01-10 19:09:00 157.5 cm Universi ty [facility] [place] [facility] Body weight 2020-01-10 19:09:00 90.493 kg Universi ty [facility] [place] [facility] BMI 2020-01-10 19:09:00 36.49 kg/m2 [facility] ty [facility] [place] [facility] Systolic blood 2020-01-04 16:00:00 121 mm[Hg] Univer sity of pressure [facility] Diastolic blood 2020-01-04 16:00:00 76 mm[Hg] Unive rsity of pressure [place] [facility] Heart rate 2020-01-04 16:00:00 75 /min [facility]i ty [facility] [place] [facility] [place] Body temperature 2020-01-04 16:00:00 35.94 Elsa Univ ersity of [facility] Respiratory rate 2020-01-04 16:00:00 16 /min Univ ersity of [facility] Body height 2020-01-04 16:00:00 157.5 cm [facility]i ty [facility] [place] [facility] [place] Body weight 2020-01-04 16:00:00 90.583 kg Universi ty of [place] [facility] BMI 2020-01-04 16:00:00 36.53 kg/m2 Universi ty of [facility] Systolic blood 2019-07-18 15:28:00 122 mm[Hg] Univer sity of pressure [place] [facility] [place] Diastolic blood 2019-07-18 15:28:00 74 mm[Hg] Unive rsity of pressure [facility] Heart rate 2019-07-18 15:28:00 64 /min [facility] ty [facility] [place] [facility] [place] Body temperature 2019-07-18 15:28:00 36.61 Elsa Univ ersity of [facility] Respiratory rate 2019-07-18 15:28:00 16 /min Univ ersity of [facility] Body height 2019-07-18 15:28:00 157.5 cm [facility] [place] [facility] [place] Body weight 2019-07-18 15:28:00 87.317 kg [facility] [place] [facility] [place] BMI 2019-07-18 15:28:00 35.21 kg/m2 Universi ty of [facility] Procedures Procedure Date / Time Performed Performing Clinician Sourc e DUPLEX VENOUS LEG 2022-04-09 04:08:00 Rayne Solorzano [facility] RIGHT - BY VASCULAR Medical Bran ch LAB NOTICE OF PRIVACY 2022-04-09 01:51:36 Doctor Unassigned, No Univ ersity [facility] [place] PRACTICES Name Medical Branch CONSENT/REFUSAL FOR 2022-04-09 01:50:16 [facility], [facility] Medical Branch TREATMENT NOTICE OF BILLING 2021-05-28 18:26:58 Doctor Unassigned, No Univ ersity [facility] [place] PRACTICES FOR Name Medical Branch MEDICARE PATIENTS CONSENT/REFUSAL FOR 2020-06-11 20:06:26 Doctor Unassigned, No Un [facility] DIAGNOSIS AND Name [facility] TREATMENT Encounters Start End Encounter Admission Attending Care Care Encounter Source Date/Time Date/Time Type Type Clinicians Facility Department ID 2022-04-08 2022-04-08 Emergency X [facility] ERT [id number] Univers 21:18:00 23:47:00 RAYNE ity of [facility] 2022-04-08 2022-04-08 Emergency [facility] [id number] Univers 21:18:00 23:47:00 Rayne DU [id number] i ty [facility] [id number] [facility] [id number] [facility] 084 Branch 2021-08-20 2021-08-20 Outpatient R [facility] [id number] Univers 13:30:00 13:30:00 [id number] ity of [facility] 2021-08-20 2021-08-20 [facility] [id number] Univers 13:30:00 13:30:00 MARIANA ity o [facility] 2021-06-11 2021-06-11 Outpatient R KAROL [facility] [id number] Univers 13:00:00 13:00:00 DERECK [id number] ity o [facility] 2021-06-11 2021-06-11 Outpatient Shadia CHUN [facility] [id number] Univers 13:00:00 13:00:00 DERECK ity o [facility] 2021-06-10 2021-06-10 Outpatient Sudireddy_R VFP [id number] Village 06:50:00 06:50:00 [id number] Family Practic e 2021-05-28 2021-05-28 Nurse Visit, Eduardo-Rmchp Nurse [facility] [id number] Univers 13:25:55 14:01:00 Visit Mariana Valle [employer]PECTION SUPERVISOR [id number] ity [facility] [id number] Ozzie as MATERNAL [id number] Med ical & CHILD [address] [place] [address] 2021-05-28 2021-05-28 Outpatient [facility] [id number] Univers 13:00:00 13:00:00 [id number] [facility] 2021-05-28 2021-05-28 Outpatient R [facility] [id number] Univers 13:00[facility] 2021-05-28 Orders Doctor SUSAN [id number] Univers 00:00:00 00:00:00 Only Unassigned, CRISTINA [id number] ity of [facility] [id number] Ozzie as [id number] [address] 2021-04-11 2021-04-11 [facility] [id number] Univers 13:10:00 13:10:00 [facility] 2021-04-09 2021-04-09 [facility] [id number] Univers 09:10:00 09:10:00 [facility] 2021-04-09 2021-04-09 [facility] [id number] Univers 08:00:00 08:00:00 [facility] 2021-03-20 2021-03-20 [facility] [id number] Univers 13:50:00 13:50:00 [facility] 2021-03-05 2021-03-05 Nurse Visit, Ang-Rmchp Nurse CHINLE [facility] 1.2 .840.114 [id number] Univers 12:49:56 13:16:06 Visit Dereck Chun INSPECTION SUPERVISOR [id number] ity of [facility] [id number] Ozzie as MATERNAL [phone] [facility] & [address] 2021-03-05 2021-03-05 Outpatient R [facility] [id number] Univers 13:00:00 13:00:00 [id number] [facility] 2021-03-05 2021-03-05 Outpatient R [facility] [id number] Univers 13:00:00 13:00:00 ity [facility] 2021-02-11 2021-02-11 Patient Efren [facility] 1.2.840.114 [id number] Univers 00:00:00 00:00:00 Outreach Francois PRIMARY [id number] i ty Merged with [facility] [id number] [place] STEWARD [id number] [address] 2020-12-11 2020-12-11 [facility] 1.2 .840.114 [id number] Univers 13:34:11 13:51:49 Visit Mariana Valle INSPECTION SUPERVISOR [id number] [facility] [id number] Ozzie as MATERNAL [phone] Med ical & CHILD [address] [place] [address] 2020-12-11 2020-12-11 Outpatient R [facility] [id number] Univers 13:30:00 13:30:00 [id number] ity [facility] 2020-12-11 2020-12-11 Outpatient R [facility] [id number] Univers 13:30:00 13:30:00 ity [facility] 2020-12-06 2020-12-06 Outpatient R [facility] [id number] Univers 09:00:00 09:00:00 [id number] ity [facility] 2020-12-06 2020-12-06 Outpatient R [facility] [id number] Univers 09:00:00 09:00:00 ity [facility] 2020-09-13 2020-09-13 [facility] 1.2 .840.114 [id number] Univers 09:15:50 09:40:37 Visit Dereck Chun INSPECTION SUPERVISOR [id number] [place] [id number] Ozzie as MATERNAL [phone] [facility] ical & CHILD [address] [place] [address] 2020-09-13 2020-09-13 Outpatient R [facility] [id number] Univers 09:00:00 09:00:00 [id number] ity [facility] 2020-09-13 2020-09-13 Outpatient R [facility] [id number] Univers 09:00:00 09:00:00 ity [facility] 2020-06-21 2020-06-21 Nurse Visit, Eduardo[facility] Nurse [facility] 1.2 .840.114 [id number] Univers 10:28:21 10:45:26 Visit Dereck Chun INSPECTION SUPERVISOR [id number] ity of [facility] [id number] Ozzie as MATERNAL [phone] [facility] ical & CHILD [address] [place] [address] 2020-06-21 2020-06-21 Outpatient R [facility] [id number] Univers 10:00:00 10:00:00 [id number] ity [facility] 2020-06-21 2020-06-21 Outpatient R [facility] [id number] Univers 10:00:00 10:00:00 ity [facility] 2020-06-11 2020-06-11 Office Karol [facility] 1.2.840.114 [id number] Univers 15:12:46 16:36:52 Visit Dereck Reno INSPECTION SUPERVISOR [id number] ity of [facility] [id number] Ozzie as MATERNAL [phone] [facility] & [address] 2020-06-11 2020-06-11 [facility] [id number] Univers 15:00:00 15:00:00 DERECK [id number] ity o f [facility] 2020-06-11 2020-06-11 Outpatient R CHUN [facility] [id number] Univers 15:00:00 15:00:00 DERECK ity o f [facility] 2020-06-11 2020-06-11 Orders Doctor DAVIS 1.2.840.114 [id number] Univers 00:00:00 00:00:00 Only Unassigned, CRISTNIA [id number] ity of [place] [facility] [id number] Ozzie as [phone] [address] 2020-05-28 2020-05-28 [facility] [id number] Univers 10:30:00 10:30:00 DERECK ity o f [facility] 2020-05-28 2020-05-28 Outpatient R KAROL [facility] [id number] Univers 10:30:00 10:30:00 DERECK ity o f [facility] 2020-03-29 2020-03-29 [facility] 1.2 .840.114 [id number] Univers 09:17:22 09:32:22 Visit Lorne Chundaren R INSPECTION SUPERVISOR [id number] ity of [facility] [id number] Ozzie as MATERNAL [phone] [facility] ical & CHILD [address] [place] [address] 2020-03-29 2020-03-29 Outpatient R [facility] [id number] Univers 09:30:00 09:30:00 [id number] ity of [facility] 2020-03-29 2020-03-29 Outpatient R [facility] [id number] Univers 09:30:00 09:30:00 ity of [facility] 2020-03-05 2020-03-05 Telephone Karol [facility] [id number] Univers 00:00:00 00:00:00 Ivetteyessicadaren Reno INSPECTION SUPERVISOR [id number] ity of [facility] [id number] Ozzie as MATERNAL [id number] [facility] & CHILD [address] [place] [address] 2020-01-10 2020-01-10 Office Karol [facility] 1.2.840.114 [id number] Univers 12:52:04 13:43:19 Visit Lornedaren Reno INSPECTION SUPERVISOR [id number] ity of [facility] [id number] Ozzie as MATERNAL [phone] [facility] ical & CHILD [address] [place] [address] 2020-01-04 2020-01-04 [facility] 1.2 .840.114 [id number] Univers 09:43:20 10:29:02 Visit Ivette Chunjessica Reno INSPECTION SUPERVISOR [id number] ity of [facility] [id number] Ozzie as MATERNAL [phone] [facility] ical & CHILD [address] [place] [address] 2019-07-18 2019-07-18 Nurse Visit, [facility] Nurse [facility] 1.2 .840.114 [id number] [facility] 10:08:13 10:41:32 Visit Dereck Chun INSPECTION SUPERVISOR [id number] [facility] [id number] Ozzie as MATERNAL [phone] [facility] & CHILD [address] [place] [address] Results This patient has no known results.
[2022-04-17 23:34] LABS: Urine Blood Negative (Negative); Urine Glucose Negative (Negative); Urine Protein Negative (Negative); Urine Specific Gravity >=1.030 (1.005-1.030)
[2022-04-17 23:56] LABS: Lymphocytes % 26.6 % (15.3-44.8); MPV 8.6 fL (7.6-11.3); RBC Red Blood Cell Count 4.78 M/uL (3.86-4.86)
[2022-04-17 23:57] LABS: Absolute Lymphocytes (CBC) 2.6 K/uL (0.7-4.9)
[2022-04-17 23:58] LABS: Protime INR 1.13
[2022-04-18 00:07] LABS: Urine Blood Negative (Negative); Urine Glucose Negative (Negative); Urine Protein Negative (Negative); Urine Specific Gravity 1.025 (1.005-1.030); Urine pH 5.5 (5.0-7.0)
[2022-04-18 00:12] LABS: Urine Specific Gravity/Preg 1.025 (1.005-1.030)
[2022-04-18 00:16] LABS: ALT/SGPT 26 U/L (12-78); AST/SGOT 10 U/L (15-37); Albumin 3.8 g/dL (3.4-5.0); Alkaline Phosphatase 95 U/L (45-117); BUN Blood Urea Nitrogen 16 mg/dL (7-18); Bicarbonate 24 mmol/L (21-32); Bilirubin Direct < 0.1 mg/dL (0-0.2); Bilirubin Total 0.2 mg/dL (0.2-1.0); Glomerular Filtration Rate 81 ml/min (=/>90); Glucose Level 97 mg/dL (74-106); Magnesium 2.2 mg/dL (1.8-2.4); NT PRO-BNP 33 pg/mL (<125); Potassium 3.8 mmol/L (3.5-5.1); Protein, Total 7.3 g/dL (6.4-8.2); Sodium Level 140 mmol/L (136-145)
[2022-04-18] MEDS ORDERED: FENTANYL CITR 100 MCG/2 ML ONE (01:23)
[2022-04-18] MEDS ORDERED: KETOROLAC 30 MG/ML INJ ONE (01:24)
--- NOTE | 2022-04-18 05:02 | ER ---
Nurse's Notes [facility] Name: Kandy Garces Age: 31 yrs Sex: Female : 1990 Arrival Date: 04/17/2022 Time: 22:05 Bed 25 Private MD: Diagnosis: Acute embolism and thrombosis of unspecified deep veins of right lower extremity Presentation: 04/17 22:30 Chief complaint: Patient states: pt has lymphedema and was here a week and a half ago kd3 but it wasn't as bad. but now it is worse. her primary has seen her regarding it and sent her home with antibiotics. right leg is effected. Coronavirus screen: Vaccine status: Patient reports receiving the 2nd dose of the covid vaccine. Ebola Screen: No symptoms or risks identified at this time. Initial Sepsis Screen: Does the patient meet any 2 criteria? No. Patient's initial sepsis screen is negative. Does the patient have a suspected source of infection? No. Patient's initial sepsis screen is negative. Risk Assessment: Do you want to hurt yourself or someone else? Patient reports no desire to harm self or others. Onset of symptoms was April 17, 2022. 22:30 Method Of Arrival: Ambulatory kd3 22:30 Acuity: RUMA 3 kd3 Triage Assessment: 22:35 General: Appears uncomfortable, Behavior is calm, cooperative. Pain: Complains of pain kd3 in right leg, right foot, ankle. 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 - Social history:: Smoking status: Patient denies any tobacco usage or history of. Screenin:00 Abuse screen: Denies threats or abuse. Nutritional screening: No deficits noted. bb Tuberculosis screening: No symptoms or risk factors identified. Fall Risk None identified. Assessment: 23:00 General: Appears in no apparent distress. Behavior is calm, cooperative. Neuro: Level bb of Consciousness is awake, alert, obeys commands, Oriented to person, place, time, situation. Cardiovascular: Capillary refill < 3 seconds Patient's skin is warm and dry. Respiratory: Respiratory effort is even, unlabored, Respiratory pattern is regular. GI: No signs and/or symptoms were reported involving the gastrointestinal system. Derm: Skin is pink, warm \T\ dry. Musculoskeletal: Circulation, motion, and sensation intact. Swelling present in right leg. 23:52 Reassessment: Patient is alert, oriented x 3, equal unlabored respirations, skin bb warm/dry/pink. awaiting diagnostic results. 04/18 00:36 Reassessment: Patient is alert, oriented x 3, equal unlabored respirations, skin bb warm/dry/pink. awaiting diagnostic results. 04:31 Reassessment: Patient is alert, oriented x 3, equal unlabored respirations, skin bb warm/dry/pink. pt resting quietly. 05:45 Reassessment: Patient is alert, oriented x 3, equal unlabored respirations, skin bb warm/dry/pink. pt verbalized understanding of and agrees to plan of care discharge instructions given pt ambulated with steady gait to exit. Vital Signs: 04/17 22:30 BP 127 / 78; Pulse 90; Resp 18; Temp 98.2; Pulse Ox 99% on R/A; Weight 108.86 kg; kd3 Height 5 ft. 1 in. (154.94 cm); Pain 5/10; 23:29 BP 116 / 55; Pulse 79; Resp 20; Temp 97.1; Pulse Ox 96% ; bb 23:52 BP 121 / 65; Pulse 77; Resp 18 S; Pulse Ox 96% on R/A; bb 04/18 00:35 BP 119 / 70; Pulse 69; Resp 20 S; Pulse Ox 96% on R/A; bb 02:34 BP 123 / 69; Pulse 86; Resp 22; Temp 97.7; Pulse Ox 99% ; pv 04:31 BP 124 / 70; Pulse 22; Resp 16 S; Pulse Ox 96% on R/A; bb 05:46 BP 131 / 69; Pulse 67; Resp 18 S; Pulse Ox 96% on R/A; bb 04/17 22:30 Body Mass Index 45.35 (108.86 kg, 154.94 cm) kd3 ED Course: 04/17 22:05 Patient arrived in ED. bp1 22:32 Josue Lowe PA is PHCP. cp 22:32 Ran Grande MD is Attending Physician. cp 22:35 Triage completed. kd3 22:35 Arm band placed on left wrist. kd3 23:00 Patient has correct armband on for positive identification. Placed in gown. Bed in low bb position. Call light in reach. Client placed on continuous cardiac and pulse oximetry monitoring. NIBP monitoring applied. 23:26 Initial lab(s) drawn, by ED staff, sent to lab. Inserted saline lock: 22 gauge in right bb antecubital area, using aseptic technique. Blood collected. 23:56 XRAY Chest (1 view) In Process Unspecified. EDMS 04/18 00:38 Sofia Alexandra RN is Primary Nurse. bb 03:37 US Extremity Venous Unilateral Ltd In Process Unspecified. EDMS 05:00 Mita Masters MD is Referral Physician. [facility] 05:46 No provider procedures requiring assistance completed. IV discontinued, intact, bb bleeding controlled, No redness/swelling at site. Pressure dressing applied. Administered Medications: 01:26 Drug: fentaNYL (PF) 25 mcg Route: IVP; Site: right antecubital; pv 02:15 Follow up: Response: No adverse reaction bb 01:26 Drug: Ketorolac 15 mg Route: IVP; Site: right antecubital; pv 02:15 Follow up: Response: No adverse reaction bb 05:11 Drug: Eliquis (apixaban) 10 mg Route: PO; pv 05:47 Follow up: Response: No adverse reaction bb Outcome: 05:01 Discharge ordered by . [facility] 05:46 Discharged to home ambulatory. bb 05:46 Condition: stable 05:46 Discharge instructions given to patient, Instructed on discharge instructions, follow up and referral plans. medication usage, Demonstrated understanding of instructions, follow-up care, medications, Prescriptions given X 1. 05:47 Patient left the ED. bb Signatures: Dispatcher [employer] EDNV Sofia Alexandra, RN RN Josue Marion PA PA cp Floridalma Hernandez bp1 Ran Grande MD MD 7 Javi Kelly RN RN Soledad Lopez RN RN 3
--- NOTE | 2022-04-18 05:02 | EDPHYS ---
Physician Documentation [facility] Name: Kandy Garces Age: 31 yrs Sex: Female : 1990 Arrival Date: 04/17/2022 Time: 22:05 Bed 25 Private MD: ED Physician Ran Grande HPI: 04/17 22:45 This 31 yrs old Female presents to ER via Ambulatory with complaints of Leg Swelling. cp 22:45 The patient presents with pain, that is acute, swelling, tenderness. The complaints cp affect the right lower leg and right ankle and right foot. Context: resulted from an unknown cause, the patient can fully bear weight, the patient is able to ambulate, with moderate difficulty. Onset: The symptoms/episode began/occurred 2 week(s) ago. 22:45 Associated signs and symptoms: Pertinent negatives fever, weakness, shortness of cp breath. Patient reports recently finishing 5 day course of antibiotics due to concern for infection of right lower leg. RN CRITICAL CARE: 22:35 LMP 04/16/2022 kd3 Historical: - Allergies: 22:35 Codeine; kd3 - Home Meds: 22:35 Advair Diskus Inhl [Active]; Albuterol Inhl [Active]; Baclofen Oral [Active]; Topamax kd3 Oral [Active]; - PMHx: 22:35 Asthma; Cervical Dystonia; enlarged lle veins; kd3 - Immunization history:: Adult Immunizations up to date. - Social history:: Smoking status: Patient denies any tobacco usage or history of. ROS: 22:50 Constitutional: Negative for body aches, chills, fever, poor PO intake. cp 22:50 Eyes: Negative for injury, pain, redness, and discharge. cp 22:50 Cardiovascular: Positive for edema, Negative for chest pain, palpitations. 22:50 Respiratory: Negative for cough, shortness of breath, wheezing. 22:50 Abdomen/GI: Negative for abdominal pain, nausea, vomiting, and diarrhea, constipation. cp 22:50 Back: Negative for pain at rest, pain with movement. cp 22:50 Neuro: Negative for altered mental status, headache, numbness, weakness. 22:50 All other systems are negative. Exam: 22:55 Constitutional: The patient appears in no acute distress, alert, awake, cp non-diaphoretic, non-toxic, well developed, well nourished. 22:55 Head/Face: Normocephalic, atraumatic. cp 22:55 Eyes: Periorbital structures: appear normal, Conjunctiva: normal, no exudate, no injection, Sclera: no appreciated abnormality, Lids and lashes: appear normal, bilaterally. 22:55 ENT: External ear(s): are unremarkable, Nose: is normal, Mouth: Lips: moist, Oral mucosa: pink and intact, moist, Posterior pharynx: is normal, airway is patent, no erythema, no exudate. 22:55 Chest/axilla: Inspection: normal, Palpation: is normal, no crepitus, no tenderness. 22:55 Cardiovascular: Rate: normal, Rhythm: regular. 22:55 Respiratory: the patient does not display signs of respiratory distress, Respirations: normal, no use of accessory muscles, no retractions, labored breathing, is not present, Breath sounds: are clear throughout, no decreased breath sounds, no stridor, no wheezing. 22:55 Abdomen/GI: Exam negative for discomfort, distension, guarding, Inspection: abdomen appears normal. 22:55 Back: pain, is absent, ROM is normal. 22:55 Skin: no rash present. 22:55 Neuro: Orientation: to person, place \T\ time. Mentation: is normal, Motor: moves all fours, strength is normal. 23:13 ECG was reviewed by the Attending Physician. cp Vital Signs: 22:30 BP 127 / 78; Pulse 90; Resp 18; Temp 98.2; Pulse Ox 99% on R/A; Weight 108.86 kg; kd3 Height 5 ft. 1 in. (154.94 cm); Pain 5/10; 23:29 BP 116 / 55; Pulse 79; Resp 20; Temp 97.1; Pulse Ox 96% ; bb 23:52 BP 121 / 65; Pulse 77; Resp 18 S; Pulse Ox 96% on R/A; bb 04/18 00:35 BP 119 / 70; Pulse 69; Resp 20 S; Pulse Ox 96% on R/A; bb 02:34 BP 123 / 69; Pulse 86; Resp 22; Temp 97.7; Pulse Ox 99% ; pv 04:31 BP 124 / 70; Pulse 22; Resp 16 S; Pulse Ox 96% on R/A; bb 05:46 BP 131 / 69; Pulse 67; Resp 18 S; Pulse Ox 96% on R/A; bb 04/17 22:30 Body Mass Index 45.35 (108.86 kg, 154.94 cm) kd3 MDM: 04/17 23:00 Patient medically screened. 04/17 22:39 Order name: Basic Metabolic Panel; Complete Time: 00:20 cp 04/18 00:20 Interpretation: Normal except: CL 109; GFR 81. cp 04/17 22:39 Order name: CBC with Diff; Complete Time: 00:05 cp 04/18 00:05 Interpretation: Reviewed. 04/17 22:39 Order name: LFT's; Complete Time: 00:20 cp 04/17 22:39 Order name: Magnesium; Complete Time: 00:20 cp 04/17 22:39 Order name: NT PRO-BNP; Complete Time: 00:20 cp 04/17 22:39 Order name: PT-INR; Complete Time: 00:05 cp 04/17 22:39 Order name: Troponin HS; Complete Time: 00:20 cp 04/17 22:39 Order name: XRAY Chest (1 view) cp 04/17 22:41 Order name: US Extremity Venous Unilateral Ltd cp 04/17 23:34 Order name: Urine Dipstick-Ancillary; Complete Time: 00:05 EDMS 04/18 00:07 Order name: Urine --Ancillary (enter results); Complete Time: 00:20 ds4 04/18 00:07 Order name: Urine Dipstick-Ancillary; Complete Time: 00:20 EDMS 04/17 22:39 Order name: EKG; Complete Time: 22:40 cp 04/17 22:39 Order name: Cardiac monitoring; Complete Time: 23:51 cp 04/17 22:39 Order name: EKG - Nurse/Tech; Complete Time: 23:51 cp 04/17 22:39 Order name: IV Saline Lock; Complete Time: 23:53 cp 04/17 22:39 Order name: Labs collected and sent; Complete Time: 23:53 cp 04/17 22:39 Order name: O2 Per Protocol; Complete Time: 23:06 cp 04/17 22:39 Order name: O2 Sat Monitoring; Complete Time: 23:07 cp 04/17 22:40 Order name: Urine Dipstick-Ancillary (obtain specimen); Complete Time: 23:36 cp 04/17 22:40 Order name: Urine Test (obtain specimen); Complete Time: 23:36 cp EC:13 Rate is 77 beats/min. Rhythm is regular. TN interval is normal. QRS interval is normal. cp QT interval is normal. T waves are Inverted in leads aVL, aVR. Interpreted by me. Reviewed by me. Administered Medications: 04/18 01:26 Drug: fentaNYL (PF) 25 mcg Route: IVP; Site: right antecubital; pv 02:15 Follow up: Response: No adverse reaction bb 01:26 Drug: Ketorolac 15 mg Route: IVP; Site: right antecubital; pv 02:15 Follow up: Response: No adverse reaction bb 05:11 Drug: Eliquis (apixaban) 10 mg Route: PO; pv 05:47 Follow up: Response: No adverse reaction bb Disposition: 07:59 Co-signature as Attending Physician, Ran Grande MD. [facility] Disposition Summary: 04/18/22 05:01 Discharge Ordered Location: Home [facility] Problem: new [facility] Symptoms: have improved [facility] Condition: Stable [facility] Diagnosis - Acute embolism and thrombosis of unspecified deep veins of right lower extremity [facility] Followup: [facility] - With: Private Physician - When: 1 - 2 days - Reason: Worsening of condition, Recheck today's complaints, Continuance of care, Re-evaluation by your physician Followup: [facility] - With: Mita Masters MD - When: 1 - 2 days - Reason: Worsening of condition, Recheck today's complaints Discharge Instructions: - Discharge Summary Sheet [facility] - Deep Vein Thrombosis [facility] Forms: - Medication Reconciliation Form [facility] - Thank You Letter [facility] - Antibiotic Education [facility] - Prescription Opioid Use [facility] Prescriptions: - Eliquis DVT-PE Treat 30D Start 5 mg (74 tabs) Oral tablets,dose pack - take 10 milligram by ORAL route 2 times per day for 7 days then take 5 mg mh7 orally twice daily.; 74 milligram; Refills: 0, Product Selection Permitted Signatures: Dispatcher [facility] ED[facility] Josue Lowe PA PA cp Holmes, Maurice, MD MD [facility] Javi Kelly RN RN Soledad Lopez RN RN kd3 Sofia Alexandra RN bb Corrections: (The following items were deleted from the chart) 04/17 22:42 22:40 Extrem Venous W Compression [id number] ordered. EDMS EDMS
[2022-04-18] MEDS ORDERED: APIXABAN 5 MG TABLET ONE (05:13)
[2022-04-18 06:06] VITALS: TEMP 97.7
[2022-04-18 06:08] VITALS: O2SAT 96
[2022-04-18 06:10] VITALS: BP 131/69
--- NOTE | 2022-04-20 13:51 | RAD REPORT ---
EXAM DESCRIPTION: US - Extremity Venous Uni Ltd - 04/18/2022 3:35 am CLINICAL HISTORY: Pain in right thigh area and hip and swelling of the right lower leg. COMPARISON: None. TECHNIQUE: Grayscale, color Doppler, duplex Doppler, spectral Doppler images and analysis with compr ession and augmentation of right lower extremity veins. FINDINGS: Right femoral vein partially compressible and shows color flow. Right common femoral, greater saphenous, deep (profunda) femoral, popliteal, posterior tibial veins u nremarkable without evidence of clot. IMPRESSION: Right femoral partial DVT. Electronically signed by: Paul Champagne MD 04/18/2022 4:15 AM CDT Due to temporary technical issues with the PACS/Fluency reporting system, reports are being signed by the in house radiologists without review as a courtesy to insure prompt reporting. The interpreting radiologist is fully responsible for the content of the report.
--- NOTE | 2022-04-20 13:54 | RAD REPORT ---
EXAM DESCRIPTION: RAD - Chest Single View - 04/17/2022 11:54 pm CLINICAL HISTORY: 31 years Female leg edema TECHNIQUE: One view of the chest. COMPARISON: No prior exams provided for comparison. FINDINGS: The lungs are clear without focal consolidation, effusion, or pneumothorax. The cardiomedi astinal silhouette and central pulmonary vasculature are normal. No acute osseous abnormalities. IMPRESSION: No acute cardiopulmonary abnormalities. Electronically signed by: Kathryn Paez MD 04/18/2022 12:18 AM CDT Due to temporary technical issues with the PACS/Fluency reporting system, reports are being signed by the in house radiologists without review as a courtesy to insure prompt reporting. The interpreting radiologist is fully responsible for the content of the report.
--- NOTE | 2022-04-21 12:25 | EKG ---
Test Date: 2022-04-17 Test Time: 23:07:10 Fur Sewer: PRISCILLA MEASUREMENT RESULTS: Intervals: Rate: 77 SC: 152 QRSD: 80 QT: 378 QTc: 427 [place]: P: 62 SC: 152 QRS: 65 T: 71 INTERPRETIVE STATEMENTS: Normal sinus rhythm with sinus arrhythmia Normal ECG No previous ECG available for comparison Electronically Signed On 04-21-22 12:17:34 CDT by Joseph García
== END 2022-04-18 05:47 | disposition home or self-care (01) ==
LOC: ER 22:02
DX: I82.401 Acute embolism and thrombosis of unspecified deep veins of right lower extremity (principal); Z88.5 Allergy status to narcotic agent
CPT/HCPCS: 93005; 85025; 80048; 36415; 83735; 81025; 85610; 80076; 81003 ×2; 84484; 83880; 71045; 93971; 96375; 96374; 99284; J3010

== ENCOUNTER 2023-12-01 07:04 | Day surgery (SDC) | payer OTHER ==
[2023-12-01] MEDS ORDERED: Ringers Lactate 1,000 ML IV ONE (07:32)
[2023-12-01] MEDS ORDERED: LIDOCAINE 1% MPF 5 ML VIAL ONE (08:02)
[2023-12-01] MEDS ORDERED: FENTANYL CITR 100 MCG/2 ML ONE ×2 (08:02→10:20)
[2023-12-01] MEDS ORDERED: MIDAZOLAM HCL 2 MG/2 ML INJ ONE (08:02)
[2023-12-01] MEDS ORDERED: ROCURONIUM 50 MG/5 ML VIAL IV ONE (08:02)
[2023-12-01] MEDS ORDERED: dexAMETHasone 4 MG/ML VIAL ONE (08:02)
[2023-12-01] MEDS ORDERED: ONDANSETRON 4 MG/2 ML VIAL ONE ×2 (08:02→10:55)
[2023-12-01] MEDS ORDERED: propofoL 200 MG/20 ML VIAL IV ONE (08:02)
[2023-12-01] MEDS ORDERED: KETOROLAC 30 MG/ML INJ ONE (08:02)
[2023-12-01 08:25] LABS: Potassium 4.5 mEq/L (3.5-5.1)
[2023-12-01] MEDS ORDERED: CEFAZOLIN SODIUM 1 GM/VIAL ONE (08:47)
[2023-12-01 08:53] LABS: Absolute Lymphocytes (CBC) 1.9 K/uL (0.7-4.9); Hematocrit 36.2 % (36.0-45.0); Lymphocytes % 27.9 % (15.3-44.8); MCV 80.9 fL (80-100); MPV 8.1 fL (7.6-11.3); Platelets 181 thou/uL (152-406); RBC Red Blood Cell Count 4.47 M/uL (3.86-4.86)
[2023-12-01] MEDS ORDERED: Mastisol Adhesive Liq ONE (10:21)
--- NOTE | 2023-12-01 10:40 | P.BOP ---
Preoperative diagnosis: tender umbilical hernia incarcerated Postoperative diagnosis: same, intrabdominal adhesions Primary procedure: 1. Laparoscopic repair of incarcerated umbilical hernia with mesh Secondary procedure: 2. laparoscopic lysis of adhesions Estimated blood loss: <10cc Specimen: hernia sac and content Findings: incarcerated omentum with dense adhesions Anesthesia: General Complications: None Transferred to: Recovery Room Condition: Good
[2023-12-01] MEDS: HYDROMORPHONE HCL 1 MG/ML INJ ONE ×2 (10:57→11:02)
--- NOTE | 2023-12-01 11:34 | OP ---
Date of Procedure: 12/01/2023 Surgeon: Yovnai Merino MD Preoperative Diagnosis: Tender umbilical incarcerated hernia. Postoperative Diagnoses: Tender umbilical incarcerated hernia plus intraabdominal adhesions and a ri ght ovarian cyst. Procedures: 1.Laparoscopic repair of incarcerated umbilical hernia with mesh. 2.Laparoscopic lysis of adhesions. Specimens: Hernia sac and content. Findings: Incarcerated omentum with dense adhesions to the anterior abdominal wall, in order for us to proceed with surgery. I have to take those adhesions first. That adhesions include omentum and s mall bowel anteriorly. The adhesions were done with no enterotomies. As a part of the procedure, we noticed the patient to have a right ovarian cyst, looked like a luteal cyst too. I took some pictur es for her to bring it to the sales intern. Complications: None. Estimated Blood Loss: Less than 10 cc. Mesh: Ventralex mesh, large. Indication: This is a case of a female, who comes to us with incarcerated umbilical hernia, eventual ly seen in the ER with a fat standing of a tissue coming through that hernia, so tenderness is presen t. We diagnosed with incarcerated umbilical hernia with options of laparoscopic possible open repair with possible mesh with benefits, alternatives, and risks including, but not limited to infection, b leeding, damage to adjacent structures, anesthesia complication, recurrence, MO, and even . She also understands this may not relieve the symptoms. She might need more than one surgical intervent ion. She does understand we may be using mesh in that region. Some pros and cons of mesh placement were discussed with the patient. She was also advised the importance of no heavy lifting and losing weight. She signed a consent. Description Of Procedure: The patient was brought to the operating room and placed in supine positio n. Anesthesia was done without complication. Abdominal area was prepped and draped in sterile fashi on. A curvilinear incision was made in the periumbilical region after time-out. Incision was anirudh d down. We noticed to be a large hernia, so we proceeded to carefully remove the umbilical skin from the hernia sac, did open the hernia sac findings incarcerated omentum is densely adhered to the ante rior abdominal wall, so we reduced the best we can this way laparoscopic. We are going to have to re move the risks of the omentum with the help of a ligature trying to get the adhesions down. So, once we have enough of the fascia exposed, we cleaned the fascia and put Vicryl 1 inside the fascia. Has son trocar was carefully introduced. Pneumoperitoneum was obtained. Now, we put 5 mm trocars in eac h side of the abdomen and that allowed me with the cameras inside to visualize the center. We noted dense adhesions of omentum in some part of the bowel to the anterior abdominal wall in order for us t o continue the surgery and repair that, those have to be addressed, so we proceeded to do laparoscopi c lysis of adhesions with the help of LigaSure, making sure that we controlled bleeding and we did no t cause any enterotomies. Once that tissue was done, we were able to calculate more or less the mesh we need and partly we need a large mesh in that region to overlap the area for 3 to 5 cm. While we were working on that, we noticed also in the area of the pelvis, there is a right ovarian cyst, what may look also a luteal cyst. I proceeded to go in that area and took some pictures, so she can bring that to the sales intern in case something else have to be done in the future. Coming back to herni a repair, we proceeded to clean the fascial edges. We introduced a large mesh underneath and secured in place with VersaTack through the Aramis trocar. Aramis trocar was removed. The fascial edges in the middle were approximated with [id number] fashion 1 Prolene multiple times until we have an air seal. Then, we went once again inside the abdomen and under direct visualization, continued fixa tion of the hernia mesh anteriorly to the fascia and peritoneum with the help of SorbaFix fixation de vice circumferentially. No bleeding. At that moment, we checked the area of the lysis of adhesions. No bleeding. No enterotomies. The mesh looked nice and flat against the abdominal wall. At that moment, under direct visualization, we deflated pneumoperitoneum and removed the trocars. Then, we p roceeded to close the subcutaneous tissue with 3-0 chromic and the skin in a subcuticular fashion wit h 3-0 chromic and Steri-Strips on top. Sponge count and instrument count correct. The patient gauri ated the procedure well. The patient was sent to recovery in stable condition. DEJUAN/DIONTE Voice ID: [id number] Report ID: [id number]
--- NOTE | 2023-12-01 11:34 | DS ---
Diagnosis: Tender umbilical hernia, incarcerated. Procedures: Laparoscopic repair of incarcerated tender umbilical hernia with mesh and laparoscopic l ysis of adhesions. Disposition: Home. Activity: As tolerated. No lifting. Condition: Stable. Plan: Follow up in my office in 1 week. Call for appointment at [phone]. Obviously, at the moment of my dictation, she is still recovering from the anesthesia, so when we are in day surgery, we are going to see and address her pain control. If we see that she is having too much pain, then we will advise her to stay overnight. Otherwise, she can go home with pain medication, let us see how she wa ke up. DEJUAN/DIONTE Voice ID: [id number] Report ID: [id number]
[2023-12-01] MEDS ORDERED: CODEINE 30MG/APAP 300MG TAB ONE (11:35)
[2023-12-01 13:59] VITALS: BP 133/83; TEMP 97.1; O2SAT 100
== END 2023-12-01 13:05 | disposition home or self-care (01) ==
LOC: OR 07:04
PROVIDERS: ATTEND Surgery
PROC: 0WUF4JZ Supplement Abdominal Wall with Synthetic Substitute, Percutaneous Endoscopic Approach (ICD-10-PCS; principal; 2023-12-01 08:45)
DX: K42.0 Umbilical hernia with obstruction, without gangrene (principal); K66.0 Peritoneal adhesions (postprocedural) (postinfection); N83.201 Unspecified ovarian cyst, right side
CPT/HCPCS: 85025; 80048; 36415; 81025; 88302; 49594; J2704; J1100; J2001; J2250; J3010 ×2; J1170; J2405 ×2; J7120; J0690

== ENCOUNTER 2024-12-06 17:44 | Emergency (ER) | payer OTHER ==
[2024-12-06] MEDS ORDERED: NA CHLORIDE 0.9% 1,000 ML ONE (19:55)
[2024-12-06 20:06] LABS: Absolute Basophils 0.1 K/uL (0-0.5); Absolute Eosinophils 0.2 K/uL (0-0.5); Absolute Lymphocytes (CBC) 2.2 K/uL (0.7-4.9); Absolute Monocytes 0.3 K/uL (0.1-1.3); Absolute Neutrophil 4.6 K/uL (1.8-8.0); Eosinophils % 3.2 % (0-4.4); Hematocrit 37.9 % (36.0-45.0); Hemoglobin 12.4 g/dL (12.0-15.0); Lymphocytes % 29.9 % (15.3-44.8); MCH 26.2 pg (27.0-35.0); MCHC 32.7 g/dL (32.0-36.0); MCV 80.1 fL (80-100); MPV 8.6 fL (7.6-11.3); Monocytes % 4.1 % (3.3-12.3); Neutrophils % 61.8 % (41.7-73.7); Nucleated Red Blood Cells % 0.1 % (0-0); Platelets 217 thou/uL (152-406); RBC Red Blood Cell Count 4.74 M/uL (3.86-4.86); Red Cell Distribution Width 17.4 % (12.1-15.2)
[2024-12-06 20:18] LABS: ALT/SGPT 17 U/L (13-56); Albumin 3.5 g/dL (3.4-5.0); Alkaline Phosphatase 96 U/L (45-117); Anion Gap 8.6 mEq/L (5.0-15.0); BUN Blood Urea Nitrogen 15 mg/dL (7-18); Bicarbonate 26 mEq/L (21-32); Bilirubin Total 0.2 mg/dL (0.2-1.0); Globulin 3.5 g/dL (2.3-3.5); Glomerular Filtration Rate 103 ml/min (=/>90); Glucose Level 121 mg/dL (74-106); Potassium 3.6 mEq/L (3.5-5.1); Sodium Level 138 mEq/L (136-145)
[2024-12-06 20:22] LABS: AST/SGOT < 10 U/L (15-37)
--- NOTE | 2024-12-06 22:01 | RAD REPORT ---
EXAMINATION: CT HEAD WITHOUT CONTRAST CT CERVICAL SPINE WITHOUT CONTRAST CLINICAL INDICATION: Female, 34 years old. DIZZINESS TECHNIQUE: Axial CT images from the skull base to the vertex without intravenous contrast. Axial CT i mages through the cervical spine were obtained without intravenous contrast. Sagittal and coronal reformatted images were created from the data set. Coronal and sagittal reformatted images were creat ed from the data set. One or more of the following dose reduction techniques were used: Automated exposure control, adjustment of the mA and/or kV according to patient size, and/or iterative reconstr uction. Unless otherwise specified, incidental findings do not require dedicated imaging follow-up. [id number]. COMPARISON: No prior exam. FINDINGS: Head: INTRACRANIAL: No acute intracranial hemorrhage. No hydrocephalus. No mass effect or midline shift. No significant white matter disease VASCULATURE: No visualized abnormalities in the arteries or dural venous sinuses. SCALP/SKULL: No significant soft tissue or osseous abnormalities. SINUSES: The visualized paranasal sinuses and mastoid air cells are predominantly clear. Cervical spine: ALIGNMENT: The cervical spine has normal alignment without scoliosis or spondylolisthesis. BONE: Vertebral body heights are maintained. No aggressive osseous lesions. DEGENERATIVE CHANGES: None significant. SOFT TISSUE: No significant abnormalities in the soft tissue of the neck. The visualized lung apices are clear. IMPRESSION: No acute intracranial abnormality. No acute fracture or traumatic malalignment of the cervical spine.
[2024-12-06 23:46] LABS: Specific Gravity 1.019 (1.005-1.030); Sqamous Epithelial <5 /HPF (None Seen); Urine Bacteria <20 /HPF (<20); Urine Bilirubin NEGATIVE (Negative); Urine Blood Negative (Negative); Urine Clarity Extremely Turbid (Clear); Urine Color Light-Yellow (Yellow); Urine Culture Reflex Order NOT NEEDED; Urine Glucose NEGATIVE (Negative); Urine Ketones NEGATIVE (Negative); Urine Microscopic Reflex YN ORDER UMIC; Urine Nitrite NEGATIVE (Negative); Urine Protein NEGATIVE (Negative); Urine RBC <5 /HPF (None Seen); Urine Urobilinogen Normal (Normal); Urine WBC <5 /HPF (<5)
[2024-12-06 23:57] LABS: Specific Gravity 1.019 (1.005-1.030)
--- NOTE | 2024-12-07 00:03 | EDPHYS ---
Physician Documentation [facility] Name: Kandy Garces Age: 34 yrs Sex: Female : 1990 Arrival Date: 12/06/2024 Time: 17:44 Bed 13 Private MD: ED Physician Josue Kramer HPI: 12/06 19:45 This 34 yrs old Female presents to ER via Ambulatory with complaints of leonora Dizziness. 19:45 The patient presents with dizziness, generalized weakness. Onset: The symptoms/episode leonora began/occurred 2 day(s) ago. Context: occurred at an unknown location. Modifying factors: The symptoms are alleviated by nothing, the symptoms are aggravated by nothing. Associated signs and symptoms: The patient has no apparent associated signs or symptoms. Severity of symptoms: At their worst the symptoms were mild in the emergency department the symptoms are unchanged. Patient's baseline: Neuro:. The patient has experienced similar episodes in the past, multiple times. 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 - Infectious Disease History:: Denies. - Social history:: Smoking status: Patient denies any tobacco usage or history of. - Family history:: not pertinent. ROS: 19:45 Constitutional: Negative for fever, chills, and weight loss, Eyes: Negative for injury, leonora pain, redness, and discharge, ENT: Negative for injury, pain, and discharge, Neck: Negative for injury, pain, and swelling, Cardiovascular: Negative for chest pain, palpitations, and edema, Respiratory: Negative for shortness of breath, cough, wheezing, and pleuritic chest pain, Abdomen/GI: Negative for abdominal pain, nausea, vomiting, diarrhea, and constipation, Back: Negative for injury and pain, : Negative for injury, bleeding, discharge, and swelling, MS/Extremity: Negative for injury and deformity, Skin: Negative for injury, rash, and discoloration, Psych: Negative for depression, anxiety, suicide ideation, homicidal ideation, and hallucinations, Allergy/Immunology: Negative for hives, rash, and allergies, Endocrine: Negative for neck swelling, polydipsia, polyuria, polyphagia, and marked weight changes, Hematologic/Lymphatic: Negative for swollen nodes, abnormal bleeding, and unusual bruising, 19:45 Neuro: Positive for dizziness, weakness, Exam: 19:45 Constitutional: This is a well developed, well nourished patient who is awake, alert, leonora and in no acute distress. Head/Face: Normocephalic, atraumatic. Eyes: Pupils equal round and reactive to light, extra-ocular motions intact. Lids and lashes normal. Conjunctiva and sclera are non-icteric and not injected. Cornea within normal limits. Periorbital areas with no swelling, redness, or edema. ENT: Nares patent. No nasal discharge, no septal abnormalities noted. Tympanic membranes are normal and external auditory canals are clear. Oropharynx with no redness, swelling, or masses, exudates, or evidence of obstruction, uvula midline. Mucous membranes moist. Neck: Trachea midline, no thyromegaly or masses palpated, and no cervical lymphadenopathy. Supple, full range of motion without nuchal rigidity, or vertebral point tenderness. No Meningismus. Chest/axilla: Normal chest wall appearance and motion. Nontender with no deformity. No lesions are appreciated. Cardiovascular: Regular rate and rhythm with a normal S1 and S2. No gallops, murmurs, or rubs. Normal PMI, no JVD. No pulse deficits. Respiratory: Lungs have equal breath sounds bilaterally, clear to auscultation and percussion. No rales, rhonchi or wheezes noted. No increased work of breathing, no retractions or nasal flaring. Abdomen/GI: Soft, non-tender, with normal bowel sounds. No distension or tympany. No guarding or rebound. No evidence of tenderness throughout. Back: No spinal tenderness. No costovertebral tenderness. Full range of motion. Skin: Warm, dry with normal turgor. Normal color with no rashes, no lesions, and no evidence of cellulitis. MS/ Extremity: Pulses equal, no cyanosis. Neurovascular intact. Full, normal range of motion., bilateral aka Neuro: Awake and alert, GCS 15, oriented to person, place, time, and situation. Cranial nerves II-XII grossly intact. Motor strength 5/5 in all extremities. Sensory grossly intact. Cerebellar exam normal. Normal gait. Psych: Awake, alert, with orientation to person, place and time. Behavior, mood, and affect are within normal limits. 19:45 ECG was reviewed by the Attending Physician. 19:45 Musculoskeletal/extremity: ROM: intact in all extremities, Circulation is intact in all extremities. Sensation intact. Compartment Syndrome exam of affected extremity: is normal. Weight bearing: able to fully bear weight, DVT Exam: No signs of deep vein thrombosis. no pain, no swelling, no tenderness, negative Homans' sign noted on exam, no appreciated bluish discoloration, no erythema, no increased warmth, 19:45 Neuro: Orientation: is normal, appropriate for stated age, no acute changes, Mentation: is normal, Memory: is normal, appropriate for stated age, no acute changes, Cranial nerves: grossly normal, is grossly normal based on the patient's age, no acute changes, Cerebellar function: is grossly normal, is grossly normal based on the patient's age, no acute changes, Motor: is normal, is grossly normal based on the patient's age, no acute changes, moves all fours, strength is normal, strength is 5/5 in all extremities, Sensation: is normal, no obvious gross deficits, no acute changes, numbness, is not appreciated, tingling, is not appreciated, Gait: is steady, appropriate for age, Deep tendon reflexes are 2+ (normal) in the bilateral brachioradialis, bicep, tricep and patellar and Achilles tendons, seizure activity, is not displayed by the patient, Vital Signs: 18:09 BP 135 / 79; Pulse 83; Resp 18 S; Temp 97.8(TE); Pulse Ox 100% on R/A; Weight 95.25 kg aa5 (R); Height 5 ft. 2 in. (R); 20:02 BP 131 / 83 LA Supine (auto/reg); Pulse 71; Resp 16; Pulse Ox 100% on R/A; jb4 20:04 BP 123 / 78 LA Sitting (auto/lg); Pulse 74; Resp 16; Pulse Ox 100% on R/A; jb4 20:05 BP 107 / 71 LA Standing (auto/lg); Pulse 122; Resp 16; Pulse Ox 100% on R/A; jb4 23:00 BP 120 / 88; Pulse 73; Resp 16; Pulse Ox 99% on R/A; jb4 18:09 Body Mass Index 38.41 (95.25 kg, 157.48 cm) aa5 NIH Stroke Scale Scores: 19:45 NIHSS Score: 0 leonora MDM: 18:13 Medical Screening Exam initiated leonora 19:58 Differential diagnosis: cardiac arrhythmia, generalized weakness, hypovolemia, leonora idiopathic dizziness, syncope, vertigo. Data reviewed: vital signs, nurses notes, lab test result(s), EKG, radiologic studies. Consideration of Admission/Observation Escalation of care including admission/observation considered. I considered the following discharge prescriptions or medication management in the emergency department Medications were administered in the Emergency Department. See MAR. Independent interpretation of the following test(s) in the Emergency Department EKG: See my EKG interpretation above. Test considered but Not performed:. Test considered but Not performed: MRI: NO MRI . Care significantly affected by the following chronic conditions: CERVICAL DYSTONIA, HYPERTENSION, VARICOSE. 12/06 18:19 Order name: CBC with Diff; Complete Time: 20:14 [facility] 12/06 22:47 Interpretation: Normal except: MCH 26.2; RDW 17.4. 12/06 18:19 Order name: Comprehensive Metabolic Panel; Complete Time: 22:45 [facility] 12/06 22:46 Interpretation: Normal except: GLUC 121; AST < 10; A/G 1.0. 12/06 18:19 Order name: Urinalysis w/ reflexes; Complete Time: 00:03 [facility] 12/07 00:03 Interpretation: Normal except: [facility] Extremely Turbid. 12/06 18:19 Order name: PREGU; Complete Time: 00:03 [facility] 12/06 23:46 Interpretation: Reviewed. 12/06 21:34 Order name: CT Head C Spine; Complete Time: 22:45 12/06 22:47 Interpretation: Reviewed report. 12/06 18:19 Order name: EKG; Complete Time: 18:20 [facility] 12/06 18:19 Order name: EKG - Nurse/Tech; Complete Time: 19:45 [facility] 12/06 19:38 Order name: PO challenge; Complete Time: 20:16 [facility] 12/06 19:38 Order name: Orthostatics; Complete Time: 20:16 [facility] EC:45 Rate is 76 beats/min. Rhythm is regular. QRS Crandall is Normal. AR interval is normal. QRS leonora interval is normal. QT interval is normal. No Q waves. T waves are Normal. No ST changes noted. Clinical impression: NSR w/ Non-specific ST/T Changes and No evidence of ischemia. Interpreted by me. Reviewed by me. Administered Medications: 20:16 Drug: NS 0.9% IV 1000 ml IV at 1000 ml once; to be given as a bolus over 60 minutes jb4 Route: IV; Rate: 1000 ml; Site: right antecubital; 21:00 Follow up: Response: No adverse reaction; IV Status: Completed infusion jb4 Point of Care Testin:38 Done with blood in lab vc1 Ranges: Critical Glucose Levels:Adult <50 mg/dl or >400 mg/dl <40 mg/dl or >180 mg/dl Disposition Summary: 12/07/24 00:03 Discharge Ordered Notes: Location: Home cp Problem: new cp Symptoms: have improved cp Condition: Stable cp Diagnosis - Dizziness and giddiness cp - Weakness cp Followup: leonora - With: Private Physician - When: 2 - 3 days - Reason: Recheck today's complaints, Continuance of care, Re-evaluation by your physician Followup: leonora - With: Blane Valadez MD - When: 2 - 3 days - Reason: Recheck today's complaints, Re-evaluation by your physician Followup: leonora - With: Jacob Ragland MD - When: 2 - 3 days - Reason: Recheck today's complaints, Re-evaluation by your physician Discharge Instructions: - Discharge Summary Sheet leonora - Benign Positional Vertigo leonora - Dizziness leonora - Vertigo leonora - Weakness leonora - Near-Syncope, Sehe-ju-Mued leonora - Vertigo, [id number] leonora - Weakness, Bzrm-[id number]-Ohrz leonora Forms: - Medication Reconciliation Form cp - Antibiotic Education cp - Prescription Opioid Use cp - Patient Portal Instructions cp - Leadership Thank You Letter cp Prescriptions: - Meclizine 25 mg Oral Tablet - take 1 tablet ORAL route every 8 hours As needed; 30 tablet; Refills: 0, leonora Product Selection Permitted NIH Stroke Scale - NIH Stroke Score Date: 12/06/2024 Time: 19:45 Total Score = 0 10. Dysarthria (speech clarity - read or repeat words) - 0(Normal) 11. Extinction and Inattention (visual/tactile/auditory/spatial/personal) - 0(No abnormality) 1a. Level of Consciousness (LOC) - 0(Alert) 1b. Level of Consciousness (LOC) (Month \T\ Age) - 0(Both) 1c. LOC Commands (Open \T\ Closes Eyes/Production Material Handler) - 0(Both) 2. Best Gaze (Lateral Gaze Paresis) - 0(Normal) 3. Visual Field Loss - 0(No visual loss) 4. Facial Palsy - 0(Normal) 5a. Left Arm: Motor (10-second hold) - 0(No drift) 5b. Right Arm: Motor (10-second hold) - 0(No drift) 6a. Left Leg: Motor (5-second hold - always test supine) - 0(No drift) 6b. Right Leg: Motor (5-second hold - always test supine) - 0(No drift) 7. Limb Ataxia (finger/nose \T\ heel/thornton - test with eyes open) - 0(Absent) 8. Sensory Loss (pinprick arms/legs/face) - 0(Normal) 9. Best Language: Aphasia (description/naming/reading) - 0(No aphasia) Initials: leonora Signatures: Dispatcher [employer] EDJosue Calvin MD MD cha Calderon, Audri, RN RN aa5 Josue Lowe PA PA cp Bryson, James, RN RN jb4 Corrections: (The following items were deleted from the chart) 21:38 20:17 Head Brain Wo Cont+CT.RAD.BRZ ordered. EDMS EDMS 12/07 00:55 12/06 20:17 TEST, SERUM+SC.LAB.BRZ ordered. EDMS EDMS
--- NOTE | 2024-12-07 00:03 | ER ---
Nurse's Notes [facility] Name: Kandy Garces Age: 34 yrs Sex: Female : 1990 Arrival Date: 12/06/2024 Time: 17:44 Bed 13 Private MD: Diagnosis: Dizziness and giddiness;Weakness Presentation: 12/06 18:09 Chief complaint: Patient states: dizziness, feeling lightheaded x 2-3 days ago, reports aa5 similar episodes in the past. Pt states "my hands get tingly". Pt states she is taking an oral appetite suppressant but stopped taking it when symptoms began. Coronavirus screen: At this time, the client does not indicate any symptoms associated with coronavirus-19. Ebola Screen: Patient denies travel to an Ebola-affected area in the 21 days before illness onset. Initial Sepsis Screen: Does the patient meet any 2 criteria? No. Patient's initial sepsis screen is negative. Does the patient have a suspected source of infection? No. Patient's initial sepsis screen is negative. Risk Assessment: Do you want to hurt yourself or someone else? Patient reports no desire to harm self or others. Onset of symptoms was November 2024. 18:09 Acuity: RUMA 3 aa5 18:09 Method Of Arrival: Ambulatory aa5 Triage Assessment: 19:00 General: Appears in no apparent distress. uncomfortable, Behavior is cooperative. vc1 Neuro: Reports dizziness. 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 - Infectious Disease History:: Denies. - Social history:: Smoking status: Patient denies any tobacco usage or history of. - Family history:: not pertinent. Screenin:00 [facility] ED Fall Risk Assessment (Adult) History of falling in the last 3 months, vc1 including since admission No falls in past 3 months (0 pts) Confusion or Disorientation No (0 pts) Intoxicated or Sedated No (0 pts) Impaired Gait No (0 pts) Mobility Assist Device Used No (0 pt) Altered Elimination No (0 pt) Score/Fall Risk Level 0 - 2 = Low Risk Oriented to surroundings, Maintained a safe environment, Educated pt \\T\\ family on fall prevention, incl call for assistance when getting out of bed. Abuse screen: Denies threats or abuse. Nutritional screening: No deficits noted. Tuberculosis screening: No symptoms or risk factors identified. Assessment: 19:15 General: Appears in no apparent distress. comfortable, Behavior is calm, cooperative, jb4 appropriate for age. Pain: Denies pain. Neuro: Level of Consciousness is awake, alert, obeys commands, Oriented to person, place, time, situation. Cardiovascular: Patient's skin is warm and dry. Rhythm is sinus rhythm. Respiratory: Airway is patent Respiratory effort is even, unlabored, Respiratory pattern is regular, symmetrical. GI: No signs and/or symptoms were reported involving the gastrointestinal system. Derm: Skin is intact, Skin is pink, warm \\T\\ dry. Musculoskeletal: Circulation, motion, and sensation intact. Range of motion: intact in all extremities. 20:15 Reassessment: Patient appears in no apparent distress at this time. Patient and/or jb4 family updated on plan of care and expected duration. Pain level reassessed. Patient is alert, oriented x 3, equal unlabored respirations, skin warm/dry/pink. 21:30 Reassessment: Patient appears in no apparent distress at this time. Patient and/or jb4 family updated on plan of care and expected duration. Pain level reassessed. Patient is alert, oriented x 3, equal unlabored respirations, skin warm/dry/pink. 22:30 Reassessment: Patient appears in no apparent distress at this time. Patient and/or jb4 family updated on plan of care and expected duration. Pain level reassessed. Patient is alert, oriented x 3, equal unlabored respirations, skin warm/dry/pink. 23:39 Reassessment: Patient appears in no apparent distress at this time. Patient and/or jb4 family updated on plan of care and expected duration. Pain level reassessed. Patient is alert, oriented x 3, equal unlabored respirations, skin warm/dry/pink. 12/07 00:59 Reassessment: Patient appears in no apparent distress at this time. Patient and/or jb4 family updated on plan of care and expected duration. Pain level reassessed. Patient is alert, oriented x 3, equal unlabored respirations, skin warm/dry/pink. Vital Signs: 12/06 18:09 BP 135 / 79; Pulse 83; Resp 18 S; Temp 97.8(TE); Pulse Ox 100% on R/A; Weight 95.25 kg aa5 (R); Height 5 ft. 2 in. (R); 20:02 BP 131 / 83 LA Supine (auto/reg); Pulse 71; Resp 16; Pulse Ox 100% on R/A; jb4 20:04 BP 123 / 78 LA Sitting (auto/lg); Pulse 74; Resp 16; Pulse Ox 100% on R/A; jb4 20:05 BP 107 / 71 LA Standing (auto/lg); Pulse 122; Resp 16; Pulse Ox 100% on R/A; jb4 23:00 BP 120 / 88; Pulse 73; Resp 16; Pulse Ox 99% on R/A; jb4 18:09 Body Mass Index 38.41 (95.25 kg, 157.48 cm) aa5 NIH Stroke Scale Scores: 19:45 NIHSS Score: 0 leonora ED Course: 17:49 Patient arrived in ED. al6 18:09 Arm band placed on. aa5 18:11 Triage completed. aa5 18:13 Josue Kramer MD is Attending Physician. leonora 19:00 Patient has correct armband on for positive identification. Bed in low position. Call vc1 light in reach. Pulse ox on. NIBP on. 19:00 Provided Education on: call light. vc1 19:51 Comprehensive Metabolic Panel Sent. jb4 19:51 CBC with Diff Sent. jb4 19:51 Inserted saline lock: 18 gauge in right antecubital area, using aseptic technique. jb4 Blood collected. 21:48 CT Head C Spine In Process Unspecified. EDMS 12/07 00:03 Blane Valadez MD is Referral Physician. cp 00:03 Jacob Ragland MD is Referral Physician. cp 00:59 No provider procedures requiring assistance completed. IV discontinued, intact, jb4 bleeding controlled, No redness/swelling at site. Pressure dressing applied. Administered Medications: 12/06 20:16 Drug: NS 0.9% IV 1000 ml IV at 1000 ml once; to be given as a bolus over 60 minutes jb4 Route: IV; Rate: 1000 ml; Site: right antecubital; 21:00 Follow up: Response: No adverse reaction; IV Status: Completed infusion jb4 Medication: 23:38 VIS not applicable for this client. vc1 Point of Care Testin:38 Done with blood in lab vc1 Ranges: Outcome: 12/07 00:03 Discharge ordered by . cp 00:59 Discharged to home ambulatory, jb4 00:59 Condition: stable 00:59 Discharge instructions given to patient, Instructed on discharge instructions, follow up and referral plans. medication usage, Demonstrated understanding of instructions, follow-up care, medications, Prescriptions given X 1, 01:00 Patient left the ED. jb4 NIH Stroke Scale - NIH Stroke Score Date: 12/06/2024 Time: 19:45 Total Score = 0 10. Dysarthria (speech clarity - read or repeat words) - 0(Normal) 11. Extinction and Inattention (visual/tactile/auditory/spatial/personal) - 0(No abnormality) 1a. Level of Consciousness (LOC) - 0(Alert) 1b. Level of Consciousness (LOC) (Month \\T\\ Age) - 0(Both) 1c. LOC Commands (Open \\T\\ Closes Eyes/Ovens Supervisor) - 0(Both) 2. Best Gaze (Lateral Gaze Paresis) - 0(Normal) 3. Visual Field Loss - 0(No visual loss) 4. Facial Palsy - 0(Normal) 5a. Left Arm: Motor (10-second hold) - 0(No drift) 5b. Right Arm: Motor (10-second hold) - 0(No drift) 6a. Left Leg: Motor (5-second hold - always test supine) - 0(No drift) 6b. Right Leg: Motor (5-second hold - always test supine) - 0(No drift) 7. Limb Ataxia (finger/nose \\T\\ heel/thornton - test with eyes open) - 0(Absent) 8. Sensory Loss (pinprick arms/legs/face) - 0(Normal) 9. Best Language: Aphasia (description/naming/reading) - 0(No aphasia) Initials: leonora Signatures: Dispatcher [employer] Josue Blackman MD MD cha Calderon, Audri, RN RN aa5 Josue Lowe PA PA cp Bryson, James RN RN jb4 Nahomy Elder RN RN vc1 Samreen Allen6
--- NOTE | 2024-12-07 11:46 | EKG ---
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
[2024-12-08 02:36] VITALS: BP 120/88; TEMP 97.8; O2SAT 99
== END 2024-12-07 01:00 | disposition home or self-care (01) ==
LOC: ER 17:44
DX: R42 Dizziness and giddiness (principal); R53.1 Weakness
CPT/HCPCS: 93005; 85025; 81001; 36415; 81025; 80053; 70450; 72125; 96360; 99284; J7030